=== PATIENT | female | born 1945 | race Caucasian/White ===

== ENCOUNTER → 2016-09-25 | Outpatient (CLI) | payer MEDICARE ==
[~2016-09-25] MED LIST: CALCIUM CITRATE; DAYPRO600 M1 PO; INDAPAMIDE2.5 MG PO; KLOR-CON20 MEQ PO; METOPROLOL SR50 MG PO; MOTRIN800 MG PO; PRAVASTATIN SOD80 MG PO; VICODIN 5/500 505 MG PO; VICODIN 500 MG-1 TAB PO
--- NOTE | ~2016-09-25 | WRIGHTHP ---
[place], [place] PATIENT HISTORY AND PHYSICAL EXAM NAME: TEJAL WHIPPLE [facility] #: [id number] UNIT #: [id number] ROOM: DOCTOR: DEEPTI AndresSIENA BIRTHDATE: [birth year] DOS: 09/25/2016 CHIEF COMPLAINT: Nonhealing wound or ulcer of the right calf. HISTORY OF PRESENT ILLNESS: This is a 71-year-old female who apparently banged her leg, the back of her right calf 3 weeks ago on a metal bed frame and suffered wounds to the back of her calf and these wounds have not healed. They do cause some discomfort and pain. She is using Betadine and triple antibiotic ointment on them. She has been to see her primary care physician who referred her to us for a nonhealing. She was started on Augmentin. She has been on Augmentin for approximately 3 days now. She said that some of the redness that was associated with the wounds seems to have gone down a bit. She has never had any problems with wound healing before. PAST MEDICAL HISTORY: Significant for the following. She does have a history of vascular disease, the patient reports right foot; however, medical records indicate left turned dark and black in color and very cold and she was admitted for a workup at [facility]. She said she did undergo vascular studies at that time, this was approximately 2 years ago and they did not find any blockages that needed to be fixed according to the patient. She denies ever having a heart attack or any other cardiac illnesses. She does have a history of hypertension, a pinched nerve, hyperlipidemia. She is not known to be diabetic, but she says her doctor has been asking her whether she checks her sugar or not. ALLERGIES: SULFA ANTIBIOTICS. MEDICATIONS: Include Pravachol 80 mg daily, metoprolol 50 b.i.d., indapamide 2.5 daily, potassium 20 mEq daily. FAMILY HISTORY: Significant for arthritis, rheumatoid arthritis. PAST SURGICAL HISTORY: She has had a hysterectomy and tonsillectomy done surgically. SOCIAL HISTORY: She is a past smoker. She has quit smoking approximately 2 years ago, but was a heavy smoker up until then. She does not drink alcohol. REVIEW OF SYSTEMS: She does have some chronic dyspnea on exertion. She denies any chest pains or nausea or vomiting. No documented fevers or chills. The wound does cause some discomfort. She otherwise, offers no other specific complaints. PHYSICAL EXAMINATION: VITAL SIGNS: As follows. Temperature 98.1, pulse is 80, respirations 18, blood pressure was unable to be checked as our blood pressure cuff that fit the patient with a large one was unfortunately not working properly. GENERAL: This is a well-developed, well-nourished female in no acute distress, somewhat obese, pleasant and cooperative. NECK: No JVD. [place], [place] PATIENT HISTORY AND PHYSICAL EXAM [id number] UN[facility] #: [id number] ROOM: DOCTOR: SIENA TATUM M.D. BIRTHDATE: [birth year] LUNGS: Clear to auscultation. CARDIOVASCULAR: S1, S2, regular rate and rhythm. ABDOMEN: Obese and soft. EXTREMITIES: She has nonpitting edema bilaterally, multiple varicosities present on both of her lower extremities. Her toes are quite cool to touch with capillary refill less than 3. ABIs not done secondary to unable to get the blood pressure on the upper extremity. Her pedal pulses are palpable, however, but once again they are quite cold. She has 2 wounds located on the right calf, one is located distally, it is measuring 0.5 x 0.25 x 0.2. The more proximal wound is 0.4 x 2 x 0.2 as well. There is some minimal fibrin slough present mostly in the distal wound. There is some localized erythema just right around the wound. The distal wound was debrided after consent with a curette, the tissue removed was just fibrin and slough only, there was no bleeding. This is a selective debridement only. The patient tolerated the debridement well. Post-debridement measurements are unchanged, but the depth would still be at 0.2. LABORATORY DATA: The last labs were done in February shows a white count of 9.5, hemoglobin of 12.5, hematocrit of 39.4, platelets are normal at 214. She had a hemoglobin A1c of 6.2 that was elevated, that was in February. ASSESSMENT AND PLAN: Chronic ulcer of the right lower extremity, likely secondary to venous insufficiency and chronic edema, possible peripheral vascular disease and history of diabetes as hemoglobin A1c was elevated. She is not on any oral hypoglycemic agents. She is apparently diet controlled. We did do a culture post-debridement of the distal wound to check for bioburden. She is already on antibiotics empirically. I will go ahead and use TheraHoney for now to help keep the wound clean. We will cover it with a nonadherent bandage and have her change it on a daily basis. She does have probable peripheral vascular disease, likely microvascular. We were not able to get an DANIAL as we had problems with her blood pressure cuff today, so we will go ahead and schedule for arterial Dopplers and hopefully try to get ABIs next week when she comes back in. She does have multiple varicosities and probable venous insufficiency as well, which is likely contributing to a poorly healing wound. Follow up in 1 week. [place], [place] PATIENT HISTORY AND PHYSICAL EXAM NAME: TEJAL WHIPPLE UNIT #: [id number] ROOM: DOCTOR: SIENA TATUM M.D. BIRTHDATE: [birth year] SIENA TATUM MD CM:HISPHYS:PATIENT HISTORY AND PHYSICAL EXAMINATION [id number] SIENA TATUM M.D. 09/29/16 1304 interface
== END ==
LOC: WOUNDCARE 03:58
DX: E11.622 Type 2 diabetes mellitus with other skin ulcer (principal); I87.2 Venous insufficiency (chronic) (peripheral); E11.51 Type 2 diabetes mellitus with diabetic peripheral angiopathy without gangrene; E66.9 Obesity, unspecified; I10 Essential (primary) hypertension; E78.5 Hyperlipidemia, unspecified; Z87.891 Personal history of nicotine dependence

== ENCOUNTER → 2016-10-01 | Outpatient (CLI) | payer MEDICARE ==
--- NOTE | ~2016-10-01 | PR ---
[place], [place] PROGRESS NOTE NAME: TEJAL WHIPPLE [facility] #: [id number] UNIT #: [id number] ROOM: DOCTOR: DEEPTI AndresSIENA BIRTHDATE: [birth year] DOS: 10/01/2016 WOUND CARE VISIT This is a routine wound care appointment. CHIEF COMPLAINT: Nonhealing ulcer of the distal right calf. HISTORY OF PRESENT ILLNESS: The location of the wound is the distal part of the right calf. It is a traumatic wound. She has had it for approximately 4 weeks now. It does cause pain and discomfort. She was seen here for the first time last week and started on TheraHoney, which she has been using and changing on a daily basis. She has completed her antibiotic course which was given to her by her primary care physician. She has no new specific complaints though there is some drainage, but no change in drainage thus far and no increased pain. No fevers or chills are noted. PHYSICAL EXAMINATION: VITAL SIGNS: She is afebrile, pulse is 64, respirations 18 and blood pressure is 146/74. EXTREMITIES: The distal wound is measuring 0.3 x 1.5 x 0.1. There is less erythema overall and less necrotic tissue. There is some fibrin slough, but it is minimal. The more proximal wound is measuring 0.4 x 1.5 x 0.2. The depth seems more deeper, but last week's measurement did show that was covered by an dried eschar, so that I think the depth looks deeper this week because of the removal of necrotic tissue. The localized erythema that was present last week appears slightly improved. It does not appear overtly cellulitic. There is no purulence. A selective debridement was done. The tissue removed was just fibrin and slough. This was done on both of these wounds. Instrument used was a curette. Cetacaine spray was used for topical anesthesia. Post-debridement measurements are unchanged except for the depth of 0.2 for both of these wounds. There was no bleeding. The patient tolerated the procedure well. ASSESSMENT AND PLAN: Chronic ulcers of the right lower extremity, likely secondary to venous insufficiency, chronic edema, possibly some peripheral vascular disease as well. Wound culture was done last week and was negative. She does seem to be responding to TheraHoney, so we will continue to use this and have her change daily dressing. She is getting Dopplers done tomorrow, arterial Dopplers, so hopefully we will get a better idea about her vascular status next week. She does have multiple varicosities and likely has venous insufficiency that is contributing to her overall slow healing. Follow up in 1 week. [place], [place] PROGRESS NOTE NAME: TEJAL WHIPPLE UNIT #: [id number] ROOM: DOCTOR: SEINA TATUM M.D. BIRTHDATE: [birth year] SIENA TATUM MD CM:MYAH [id number] SIENA TATUM M.D. 10/02/16 0240 interface
== END ==
LOC: WOUNDCARE 03:21
DX: L97.212 Non-pressure chronic ulcer of right calf with fat layer exposed (principal); E66.9 Obesity, unspecified; I48.91 Unspecified atrial fibrillation

== ENCOUNTER → 2016-10-02 | Outpatient (CLI) | payer MEDICARE | END | disposition home or self-care (01) | LOC: US 10:29 | DX: I73.89 Other specified peripheral vascular diseases (principal); I10 Essential (primary) hypertension; E11.9 Type 2 diabetes mellitus without complications ==

== ENCOUNTER → 2016-10-08 | Outpatient (CLI) | payer MEDICARE ==
--- NOTE | ~2016-10-08 | PR ---
[place], [place] PROGRESS NOTE NAME: TEJAL WHIPPLE [facility] #: [id number] UNIT #: [id number] ROOM: DOCTOR: DEEPTI AndresSIENA BIRTHDATE: [birth year] DOS: 10/08/2016 CHIEF COMPLAINT: Nonhealing ulcers of the distal right calf. HISTORY OF PRESENT ILLNESS: The location of the wounds are on the distal part of the right calf. They are traumatic in origin. They have been present for approximately 5 weeks now. They do cause pain and discomfort. She has been on TheraHoney for approximately 2 weeks now, which has made some improvement, but not a large amount. She has no specific complaints. She does still have occasional drainage, but she still does have some pain and discomfort. She just had her arterial Dopplers done last week, which were read as mild multilevel arterial disease based on waveform analysis. PHYSICAL EXAMINATION: VITAL SIGNS: Today, she is afebrile, pulse is 72, respirations 18, blood pressure is 130/70. WOUND EXAMINATION: The wound on the distal part of the right calf is measuring 0.3 x 1.5 x 0.1. There is some moderate amount of fibrin slough present. There is still some localized erythema. The more proximal wound is measuring 0.3 x 1 x 0.2 and still has a fair amount of fibrin slough present. There is localized erythema. Debridement was done. This is a selective debridement of both of the wounds. A culture was obtained of the more proximal wound post-debridement. The tissue removed was fibrin and slough. The instrument used was a curette. Post-debridement measurements are unchanged. There was no bleeding. The patient tolerated the procedure well. ASSESSMENT AND PLAN: Slowly healing chronic ulcers of the right lower extremity that started out as traumatic in nature, but are slow to heal secondary to venous insufficiency, chronic edema with some peripheral vascular disease as well. She is also what appears to be a diet controlled diabetic and has morbid obesity. We will discontinue the TheraHoney and use Bactroban ointment. A culture was obtained. We will go with a collagen dressing and I will really use Tubigrip for some compression for now. I would like her to change dressing every other day. Follow up early next week. That way if there is no improvement, we may want to do a compression wrap such as an Unna boot. She should be able tolerate this according to her vascular studies. Followup is in 1 week, early next week. [place], [place] PROGRESS NOTE NAME: TEJAL WHIPPLE UNIT #: [id number] ROOM: DOCTOR: SIENA TATUM M.D. BIRTHDATE: [birth year] SIENA TATUM MD CM:PNTRANS [id number] SIENA TATUM M.D. 10/08/16 2331 interface
== END ==
LOC: WOUNDCARE 00:53
DX: L97.212 Non-pressure chronic ulcer of right calf with fat layer exposed (principal); I87.2 Venous insufficiency (chronic) (peripheral); I73.9 Peripheral vascular disease, unspecified; E66.9 Obesity, unspecified; I48.91 Unspecified atrial fibrillation

== ENCOUNTER → 2016-10-15 | Outpatient (CLI) | payer MEDICARE ==
--- NOTE | ~2016-10-15 | PR ---
[place], [place] PROGRESS NOTE [id number] #: [id number] ROOM: DOCTOR: DEEPTI AndresSIENA BIRTHDATE: [birth year] DOS: 10/15/2016 The patient comes in for a followup visit. CHIEF COMPLAINT: Wounds of the right lower extremity. The location of the wounds are on the distal part of the right calf. They are traumatic in origin, they have been present for approximately 6 weeks now. They have had pain and discomfort, but now they have definitely that has improved quite a bit so she does not complain of pain at this time. They are drying up and they are not really draining at this time either. She was started on Bactroban ointment and doxycycline for large amounts of staph in her cultures since last visit. She has no other specific complaints. OBJECTIVE: VITAL SIGNS: Stable. Temperature is 98.1, pulse is 68, respirations 18, blood pressure is 118/64. One of the wounds is measuring much smaller 0.1 x 0.2 x 0.1. The other one is 0.1 x 0.1 x 0.1. They are definitely seeming to be healing quite nicely. No debridement was done at this time. The erythema that was present before on prior occasion is much improved as well and they are not tender. Debridement was not done. ASSESSMENT AND PLAN: Slowly healing chronic ulcers that are definitely moving in the right direction at this time. Comorbid conditions are venous insufficiency, chronic edema, some peripheral vascular disease as well as diet-controlled diabetes, morbid obesity. We will continue with the Bactroban ointment and she is going to complete her oral antibiotics. She is to follow up with us in 2 weeks. We will hold off on any compression wraps at this time. I did explain to her that she does have some mild peripheral arterial disease and she has followed up with Dr. Guerra in the past. She was told to follow up with him as well. This was 2 years ago so I did mention that she should at some point to follow up with him to see what he says as far as her vascular status goes. [place], [place] PROGRESS NOTE [facility]: [id number] UNIT #: [id number] ROOM: DOCTOR: SIENA TATUM M.D. BIRTHDATE: [birth year] SIENA TATUM MD CM:PNTRANS [phone] SIENA TATUM M.D. 10/16/16 0308 interface
== END ==
LOC: WOUNDCARE 02:42
DX: E11.622 Type 2 diabetes mellitus with other skin ulcer (principal); I87.2 Venous insufficiency (chronic) (peripheral); L97.212 Non-pressure chronic ulcer of right calf with fat layer exposed; E66.01 Morbid (severe) obesity due to excess calories; E11.51 Type 2 diabetes mellitus with diabetic peripheral angiopathy without gangrene

== ENCOUNTER → 2016-10-29 | Outpatient (CLI) | payer MEDICARE ==
--- NOTE | ~2016-10-29 | PR ---
[place], [place] PROGRESS NOTE NAME: TEJAL WHIPPLE [facility] #: [id number] UNIT #: [id number] ROOM: DOCTOR: SIENA TATUM M.D. BIRTHDATE: [birth year] DOS: 10/29/2016 CHIEF COMPLAINT: Wounds of the right lower extremity. HISTORY OF PRESENT ILLNESS: The wounds have been present for approximately 8 weeks now, they were traumatic in origin. The patient was seen approximately 2 weeks ago and at that time, the wounds had been healing quite nicely. She did have a culture that grew large amounts of Staph she was treated with Bactroban ointment and doxycycline. She states her wounds are healed, they were not bothering her, they were not red, they were not draining, and they were not causing any pain or discomfort. PHYSICAL EXAMINATION: VITAL SIGNS: Stable. The wounds have healed. Temperature is 98.1, pulse is 72, respirations 20, and blood pressure is 150/70. ASSESSMENT AND PLAN: Healed traumatic wounds. The patient will be discharged from the wound clinic and may follow up if need be in the future. SIENA TATUM MD CM:MYAH [phone] SIENA TATUM M.D. 10/29/16 1723 interface
== END ==
LOC: WOUNDCARE 01:29
DX: L97.212 Non-pressure chronic ulcer of right calf with fat layer exposed (principal); I87.2 Venous insufficiency (chronic) (peripheral); E66.9 Obesity, unspecified; I73.9 Peripheral vascular disease, unspecified

== ENCOUNTER 2017-01-09 14:57 | Emergency (ER) | payer MEDICARE ==
[~2017-01-09] VITALS: Ht 170.1 cm; Wt 117.9 kg
[2017-01-09] MEDS ORDERED: CALCIUM + VITA1 EAC2 PO (15:05)
[2017-01-09] MEDS ORDERED: K-TAB20 MEQ PO (15:08)
[2017-01-09] MEDS ORDERED: SYNTHROID25 MCG PO (15:08)
[2017-01-09] MEDS ORDERED: LOW DOSE ASPIRI81 MG PO (15:08)
[2017-01-09] MEDS ORDERED: NAPROSYN500 MG PO (15:14)
[2017-01-09] MEDS ORDERED: CYCLOBENZAPRINE5 M3 PO (15:14)
== END 2017-01-09 16:25 | disposition home or self-care (01) ==
LOC: ED 14:57
DX: M79.622 Pain in left upper arm (principal); M54.10 Radiculopathy, site unspecified; R03.0 Elevated blood-pressure reading, without diagnosis of hypertension; Z88.2 Allergy status to sulfonamides; Z79.82 Long term (current) use of aspirin; Z79.899 Other long term (current) drug therapy

== ENCOUNTER 2017-01-29 06:06 | Emergency (ER) | payer MEDICARE ==
[~2017-01-29] VITALS: Ht 170.1 cm; Wt 113.4 kg
[~2017-01-29 06:06] MED LIST changes: +CALCIUM + VITA1 EAC2 PO; +CYCLOBENZAPRINE5 M3 PO; +K-TAB20 MEQ PO; +LOW DOSE ASPIRI81 MG PO; +NAPROSYN500 MG PO; +SYNTHROID25 MCG PO
[2017-01-29 06:44] LABS: BASO # 0.1 10*3/uL (0.0-0.1); BASO % 0.7 % (0.0-1.0); EOS # 0.3 10*3/uL (0.0-0.4); EOS % 2.5 % (1.0-4.0); HEMATOCRIT 40.3 % (37.0-47.0); HEMOGLOBIN 12.6 g/dl (12.0-16.0); LYMPH # 3.6 10*3/uL (1.3-4.4); LYMPH % 30.3 % (27.0-41.0); MEAN CORPUSCULAR HGB 27.5 pg (27.0-31.0); MEAN CORPUSCULAR HGB CONC 31.3 g/dl (33.0-37.0); MONO # 0.6 10*3/uL (0.1-1.0); NEUT # 7.3 10*3/uL (2.3-7.9); NEUT % 61.2 % (47.0-73.0); PLATELET COUNT AUTOMATED 225 10*3/uL (130-400); RED BLOOD COUNT 4.58 10*6/uL (4.10-5.10); RED CELL DISTRI WIDTH 13.3 % (0-14.5); WHITE BLOOD COUNT 11.9 10*3/uL (4.8-10.8)
[2017-01-29 06:55] LABS: PROTHROMBIN TIME 10.6 SECONDS (9.0-12.4)
[2017-01-29 07:04] LABS: ALBUMIN 2.9 gm/dl (3.1-4.5); ALKALINE PHOSPHATASE 69 U/L (45-117); BILIRUBIN, TOTAL 0.5 mg/dl (0.2-1.0); BUN 12 mg/dl (7-24); CARBON DIOXIDE 24 mmol/L (21-32); CHLORIDE 105 mmol/L (98-107); EST GLOM FILT AFRICAN AMERICAN > 60 ml/min; GLUCOSE 155 mg/dL (65-99); MAGNESIUM 1.3 mg/dL (1.5-2.1); POTASSIUM 3.6 mmol/L (3.5-5.1); SGOT/AST 28 IU/L (3-35); SGPT/ALT 38 U/L (12-78); SODIUM 139 mmol/L (136-145); TOTAL PROTEIN 7.4 gm/dL (6.4-8.2)
[2017-01-29 07:11] LABS: TROPONIN I < 0.015 ng/ml (<0.045)
[2017-01-29] MEDS ORDERED: NAPROSYN500 MG PO (07:49)
== END 2017-01-29 07:52 | disposition home or self-care (01) ==
LOC: ED 06:06
PROVIDERS: Student in an Organized Health Care Education/Training Program
DX: M54.9 Dorsalgia, unspecified (principal); Z88.2 Allergy status to sulfonamides; Z79.82 Long term (current) use of aspirin

== ENCOUNTER 2018-07-19 16:08 | Inpatient (IN) | payer OTHER ==
[~2018-07-19] VITALS: Ht 170.1 cm; Wt 116.7 kg
--- NOTE | ~2018-07-19 | PR ---
[place], [place] PROGRESS NOTE NAME: TEJAL WHIPPLE [facility] #: [id number] UNIT #: [id number] ROOM: 502 DOCTOR: MARY ANN FORBES MD BIRTHDATE: [birth year] DOS: 07/21/2018 SUBJECTIVE: The patient is doing much better. She does not have any more complaints of chest pain or abdominal pain. OBJECTIVE: VITAL SIGNS: Pressure is 134/54, pulse of 63, respirations 22, temperature 98.1. LUNGS: Clear. HEART: Regular. ABDOMEN: Obese, soft, nontender. EXTREMITIES: Without any edema. Stress test was normal. ASSESSMENT AND PLAN: 1. The patient with precordial chest pain, ruled out for myocardial infarction and stress test was negative. 2. Epigastric pain could be from aspirin and Naprosyn, Protonix was added and the patient is asymptomatic this morning. Workup so far is negative. Plan is to discharge him to home today to follow up with Dr. Guillen as an outpatient. MARY ANN FORBES MD CM:PNTRANS [phone] MARY ANN FORBES MD 07/21/182140 interface
--- NOTE | ~2018-07-19 | CON ---
[place], [place] REPORT OF CONSULTATION NAME: TEJAL WHIPPLE [facility] #: [id number] UNIT #: [id number] ROOM: 502 DOCTOR: ARELI FOREMAN MD BIRTHDATE: [birth year] DOS: 07/20/2018 REFERRING PHYSICIAN: Татьяна Bowers MD REASON FOR CONSULTATION: Evaluation of chest discomfort. HISTORY OF PRESENT ILLNESS: The patient is a 73-year-old woman who does have a history of hypertension. She was seen yesterday by Dr. Guillen as an outpatient and complained of chest discomfort. She was scheduled for a stress test. She went home and her pain got worse and so she decided to come to the Emergency Room for assessment. In addition, she did have some epigastric discomfort, but denied any fevers or chills and denied nausea or vomiting. In the hospital, she was noted to have a marked elevation in blood pressure, which was as high as 223/68. Her medications were adjusted and her blood pressures have since improved. PAST MEDICAL HISTORY: Includes; 1. Essential hypertension. 2. Palpitations. 3. Swelling of the legs. 4. History of cataract resections. 5. History of gout. 6. History of abnormal cardiovascular stress test with questionable ischemia in the inferior wall. This has been managed medically and she has never had a heart catheterization. MEDICATIONS: Prior to admission, amlodipine 5 mg daily, aspirin 81 mg daily, calcium carbonate with vitamin D daily, cyclobenzaprine 5 mg t.i.d. with meals, levothyroxine 50 mcg daily, metoprolol 100 mg b.i.d., naproxen 500 mg b.i.d., potassium 20 mEq daily and pravastatin 80 mg at bedtime. ALLERGIES: SHE LISTS AN ALLERGY TO SULFA DRUGS. FAMILY HISTORY: Negative for early coronary artery disease. REVIEW OF SYSTEMS: The patient denies diplopia or loss of vision. She denies lightheadedness or syncope. She denies orthopnea or PND. She denies fevers, chills, sweats or recent weight change. She has had swelling in her ankles; however. She denies nausea or vomiting. She denies blood in her stools or urine. The remainder of the review of systems is negative except as noted above. SOCIAL HISTORY: The patient does not drink alcohol and does not smoke. PHYSICAL EXAMINATION: GENERAL: The patient is well-nourished white female, awake, alert and oriented. VITAL SIGNS: Pulse is 63 and regular, blood pressure is currently 118/72. She is afebrile. She weighs 116.7 kg and has a body mass index of 40.3. HEENT: Normocephalic and atraumatic. Extraocular muscles are intact. Sclerae are clear. Pupils equal, round and reactive to light. The oral mucosa is [place], [place] REPORT OF CONSULTATION NAME: TEJAL WHIPPLE UNIT #: [id number] ROOM: [facility] DOCTOR: ARELI FOREMAN MD BIRTHDATE: [birth year] moist. Tongue is midline. NECK: Supple. She has no jugular distention. Carotids are full with no bruits. She has no neck or supraclavicular masses. RESPIRATORY: Respirations are unlabored. Her chest is clear to auscultation and percussion. She has no presacral edema or chest wall tenderness. CARDIOVASCULAR: Her heart has a regular rhythm. She has no murmurs or rubs. She does have an S4 gallop, but no S3. The PMI is not displaced. There is no precordial heave, lift or thrill. ABDOMEN: Obese, but otherwise benign. EXTREMITIES: Showed trace edema bilaterally. LABORATORY DATA: Hemoglobin is 11.4, hematocrit 37.8, white count is 10,600, platelet count 242,000. Sodium 138, potassium 4.5, chloride 105, CO2 24, BUN 21, creatinine 0.69. Troponin levels have been negative. IMPRESSION: 1. Hypertensive urgency. 2. Precordial chest pain, which is most likely not cardiac in origin. 3. Abnormal laboratory studies including an elevated lipase. PLAN: The patient's blood pressure medications are being adjusted by Dr. Bowers. Abdominal ultrasound will be obtained in order to determine if gallbladder could be causing her elevated lipase and epigastric pain. We will proceed with a pharmacologic myocardial stress test. Further recommendations from a cardiac standpoint will depend on those results. We thank Dr. Bowers for asking our advice regarding her care. ARELI FOREMAN MD CM:CONSTR:REPORT OF CONSULTATION 1358 07/21/18 0723 interface
--- NOTE | ~2018-07-19 | EKG ---
[place], [place] ELECTROCARDIOGRAM REPORT NAME: TEJAL WHIPPLE UNIT #: [id number] ROOM: [facility] DOCTOR: ALY DRAFT REPORT BIRTHDATE: [birth year] [facility] Test Date: 2018-07-19 Test Time: 16:09:27 Pat Name: TEJAL WHIPPLE Department: Room: [facility] Gender: F Director Appointment: : 1945 Requested By: MINAL SELLERS Order Number: [id number] Reading MD: Melchor Hazel MD Measurements Intervals [place] Rate: 67 P: 23 [place]: 176 QRS: -16 QRSD: 74 T: 56 QT: 383 QTc: 405 Interpretive Statements Sinus rhythm Baseline wander in lead(s) V1 Electronically Signed On 07-20-2018 9:23:33 PST by Melchor Hazel MD CM:EKGRPT:ELECTROCARDIOGRAM REPORT [id number] MINAL MEDINA DRAFT REPORT MINAL SELLERS DO
--- NOTE | ~2018-07-19 | DS ---
[place], [place] DISCHARGE SUMMARY NAME: TEJAL WHIPPLE [facility] #: [id number] UNIT #: [id number] ROOM: 502 DOCTOR: MARY ANN FORBES MD BIRTHDATE: [birth year] DOS: 07/21/2018 DIAGNOSES: 1. Atypical chest pain, ruled out for myocardial infarction. 2. Acute gastritis, medication related. 3. Elevated and lipase workup so far negative for stress test. 4. Benign hypertension, poorly controlled. 5. Precordial chest pain with negative stress test. HOSPITAL COURSE: This patient is 73 years old. The patient comes in with complaints of chest pain. She had workup in the Emergency Room and had elevated lipase, was admitted. After examination, the patient seemed to have more of an epigastric pain. Amylase and lipase were repeated and this were normal. CT of the abdomen and pelvis and ultrasound of the gallbladder were all done, which were negative. Three sets of troponins were done, which came back normal. The patient had a medication adjustments made and her blood pressures are much better. Dr. Hazel was consulted as stress test was performed and this has also come back normal. The patient is advised not to take the Naprosyn, which could be causing some gastritis and her complaints of chest pain. The patient is stable today. The plan is to discharge her to home today. DISCHARGE MEDICATIONS: Amlodipine 10 daily, Protonix 40 b.i.d., Pravachol 80 daily, calcium 600 daily, potassium 20 daily, levothyroxine 50 mcg daily, aspirin 81 daily, cyclobenzaprine 5 t.i.d., metoprolol 100 b.i.d. Discontinued medication was naproxen. MARY ANN FORBES MD CM:DISCHARG [id number] MARY ANN FORBES MD 07/21/18 1019 interface
--- NOTE | ~2018-07-19 | WRIGHTHP ---
[place], [place] PATIENT HISTORY AND PHYSICAL EXAM NAME: TEJAL WHIPPLE [facility] #: [id number] UNIT #: [id number] ROOM: 502 DOCTOR: MARY ANN FORBES MD BIRTHDATE: [birth year] DOS: 07/19/2018 HISTORY OF PRESENT ILLNESS: This patient is 73 years old. The patient was seen in the office for Dr. Guillen and had complained of chest pain, was scheduled for a stress test. She states that she went home and her pain got worse and it was different this time and she got scared and decided to come into the Emergency Room. She denies having any chest pain this morning, but complains of some discomfort in the upper epigastric region. Denies having any fever or chills, any abdominal pain, nausea, and emesis. She does not have any regurgitation symptoms. PAST MEDICAL HISTORY: Significant for; 1. Benign hypertension. 2. Hypothyroidism. 3. Mixed hyperlipidemia. MEDICATIONS: Amlodipine 5 daily, aspirin 81 mg daily, cyclobenzaprine 5 mg t.i.d. p.r.n. for muscle spasms, levothyroxine 50 mcg daily, metoprolol 100 mg twice a day, naproxen 500 mg twice a day, potassium 20 daily, Pravachol 80 daily. SOCIAL HISTORY: Nonsmoker, does not use any alcohol. Lives at home. Her children are all grown. PHYSICAL EXAMINATION: GENERAL: She is awake, alert and oriented, in no acute distress. VITAL SIGNS: Graphic trend shows a pressure of 132/70 this morning, pulse of 78, respirations 14, afebrile. LUNGS: Diminished breath sounds, clear. HEART: Regular. ABDOMEN: Obese, soft, nontender. EXTREMITIES: Without any edema. ASSESSMENT AND PLAN: 1. The patient comes in with precordial chest pain, which appears to be atypical and most likely epigastric in nature. The patient has risk factors, so will be admitting her. Rule out myocardial infarction protocol was started. Cardiology consultation was obtained. A stress test and an echocardiogram will be ordered. 2. Epigastric pain with tenderness. The patient has been on Naprosyn and aspirin combination, may have gastritis. We will place her on Protonix 40. CT of the abdomen and pelvis done in the Emergency Room was negative. 3. Abnormal labs including an elevated lipase. Gallbladder screening was done to rule out gallstones and so far it shows diffuse hepatic steatosis. Amylase and lipase was repeated and this has come back normal. We had kept the patient n.p.o. with fluids, which will be discontinued; once the stress test is done. If the pressures are controlled, the patient should be able to go home. [place], [place] PATIENT HISTORY AND PHYSICAL EXAM [facility]: [facility] [id number] UN[facility] #: [id number] ROOM: [facility] DOCTOR: MARY ANN FORBES MD BIRTHDATE: [birth year] MARY ANN FORBES MD CM:HISPHYS:PATIENT HISTORY AND PHYSICAL EXAMINATION 0 MARY ANN FORBES MD 07/20/18921 interface
--- NOTE | ~2018-07-19 | EKG ---
[place], [place] ELECTROCARDIOGRAM REPORT NAME: TEJAL WHIPPLE UNIT #: [id number] ROOM: [facility] DOCTOR: ALY DRAFT REPORT BIRTHDATE: [birth year] [facility] Test Date: 2018-07-19 Test Time: 22:21:29 Pat Name: TEJAL WHIPPLE Department: Room: [facility] Gender: F Air Twist Operator: KATHY : 1945 Requested By: MINAL SELLERS Order Number: [id number] Reading MD: Melchor Hazel MD Measurements Intervals [place] Rate: 60 P: -9 [place]: 185 QRS: -12 QRSD: 74 T: 51 QT: 409 QTc: 409 Interpretive Statements Sinus rhythm Low voltage, precordial leads No change from earlier ECG this date Electronically Signed On 07-20-2018 9:37:20 PST by Melchor Hazel MD CM:EKGRPT:ELECTROCARDIOGRAM REPORT [id number] MINAL MEDINA DRAFT REPORT MINAL SELLERS DO
[2018-07-19 16:12] VITALS: BP 163/48
[2018-07-19 16:28] LABS: BASO # 0.1 10*3/uL (0.0-0.1); EOS # 0.2 10*3/uL (0.0-0.4); EOS % 2.3 % (1.0-4.0); HEMATOCRIT 37.8 % (37.0-47.0); HEMOGLOBIN 11.4 g/dl (12.0-16.0); LYMPH # 2.8 10*3/uL (1.3-4.4); LYMPH % 26.4 % (27.0-41.0); MEAN CELL VOLUME 88.1 fl (81.0-99.0); MEAN CORPUSCULAR HGB 26.6 pg (27.0-31.0); MEAN CORPUSCULAR HGB CONC 30.2 g/dl (33.0-37.0); MEAN PLATELET VOLUME 11.1 fl (9.6-12.3); MONO # 0.7 10*3/uL (0.1-1.0); MONO % 6.5 % (3.0-9.0); NEUT # 6.8 10*3/uL (2.3-7.9); NEUT % 63.5 % (47.0-73.0); PLATELET COUNT AUTOMATED 242 10*3/uL (130-400); RED BLOOD COUNT 4.29 10*6/uL (4.10-5.10); RED CELL DISTRI WIDTH 15.9 % (0-14.5); WHITE BLOOD COUNT 10.6 10*3/uL (4.8-10.8)
[2018-07-19 16:49] LABS: ALBUMIN 3.1 gm/dl (3.1-4.5); ALKALINE PHOSPHATASE 74 U/L (45-117); BUN 24 mg/dl (7-24); CHLORIDE 105 mmol/L (98-107); CREATININE 0.72 mg/dL (0.55-1.02); POTASSIUM 4.7 mmol/L (3.5-5.1); SGOT/AST 29 IU/L (3-35); SGPT/ALT 31 U/L (12-78); SODIUM 138 mmol/L (136-145); TOTAL PROTEIN 7.3 gm/dL (6.4-8.2)
[2018-07-19 16:50] LABS: ACT PARTIAL THROMBO TIME 20.7 SECONDS (20.8-31.5); LIPASE 438 U/L (73-393)
[2018-07-19 16:54] LABS: TROPONIN I < 0.015 ng/ml (<0.045)
--- NOTE | 2018-07-19 18:01 | NUR ---
PT'S NURSE NOW LEAVES DEPARTMENT FOR FAMILY EMERGENCY AND I WILL TAKEN OVER CARE FROM THIS POINT.
[2018-07-19 19:05] VITALS: BP 158/52
[2018-07-19 20:01] VITALS: BP 146/48
[2018-07-19 21:00] VITALS: BP 144/62
[2018-07-19 21:54] VITALS: BP 223/68
[2018-07-19 22:00] VITALS: BP 170/76
--- NOTE | 2018-07-19 22:00 | NUR ---
A 73, admitted to 5E, under the services of MARY ANN Montana MD with a diagnosis of ELEVATED LIPASE, CHEST PAIN. Chief complaint is CHEST PAIN. Patient arrived via wheel chair from ER. Monitor applied. Initial assessment completed. Vital signs taken and recorded. MARY ANN MONTANA MD notified of admission to the unit. Orders received. See assessment for past medical history, medications and allergies. Patient and/or family oriented to unit. [facility] visitation policy reviewed. Clothing/patient valuable form completed. ANGELINE GUTIÉRREZ
--- NOTE | 2018-07-19 23:00 | NUR ---
MED REC WILL NEED VERIFIED WITH [facility] IN AM. PATIENT DOES NOT KNOW NAMES/DOSES/FREQUENCIES OF MEDICATIONS AND FORGOT TO BRING IN HER LIST. THE ONLY MEDICATIONS SHE CAN FOR SURE TELL RN IS METOPROLOL AND AMLODIPINE. THESE ARE ALSO VERIFIED PER MED CLAIMS HX.
--- NOTE | 2018-07-19 23:20 | NUR ---
CALLED. NEW ADMISSION ORDERS RECEIVED.
[2018-07-19] MEDS ORDERED: AMLODIPINE BESYL5 MG PO (23:29)
[2018-07-19] MEDS ORDERED: METOPROLOL TAR100 M1 PO (23:29)
[2018-07-20] VITALS (8 sets, daily range): BP systolic 120–186; BP diastolic 50–94
--- NOTE | 2018-07-20 00:45 | NUR ---
'S ANSWERING SERVICE CALLED AT THIS TIME REGARDING CONSULT.
--- NOTE | 2018-07-20 01:25 | NUR ---
PO AMLODIPINE AND PO METOPROLOL ADMINISTERED PER ORDER FOR BP 170/76. WILL MONITOR EFFECTIVENESS. IVF ALSO INITIATED AT 60 ML/HR PER ORDER. WILL MONITOR. CALL LIGHT LEFT IN REACH.
--- NOTE | 2018-07-20 03:24 | NUR ---
NOTIFIED OF BP 186/60 MANUALLY. NEW ORDER RECEIVED FOR 0.1 MG CLONIDINE X1 DOSE.
--- NOTE | 2018-07-20 05:07 | NUR ---
PT MEDICATED WITH PO CLONIDINE PER ORDER. WILL MONITOR EFFECTIVENESS.
[2018-07-20 07:35] LABS: LIPASE 343 U/L (73-393)
[2018-07-20 07:41] LABS: ALBUMIN 3.2 gm/dl (3.1-4.5); ALKALINE PHOSPHATASE 74 U/L (45-117); BUN 21 mg/dl (7-24); CHLORIDE 105 mmol/L (98-107); CREATININE 0.69 mg/dL (0.55-1.02); POTASSIUM 4.5 mmol/L (3.5-5.1); SGOT/AST 31 IU/L (3-35); SGPT/ALT 29 U/L (12-78); SODIUM 138 mmol/L (136-145); TOTAL PROTEIN 7.3 gm/dL (6.4-8.2)
--- NOTE | 2018-07-20 09:00 | NUR ---
Supervisor Rides in to talk to patient. Patient states lives at home with her . There are 0 steps in the home. Physician: Dr. Len Guillen [facility] Home health services: none Patient's level of ADLs: MINIMAL ASSIST Patient has working utilities: yes DME: cane Follow-up physician's appointment after d/c: she prefers to make her own follow up appt after discharge Does patient want to access PORTAL?: no Discharge plan discussed with patient. She lives at home with her . She is independent in her ADLs and ambulates with a cane. Discussed home health care services and she denies any home needs at this time. When medically stable she will be discharged to home. LUNA MCNAMARA
--- NOTE | 2018-07-20 12:11 | NUR ---
PT OOOF FOR STRESS TEST
--- NOTE | 2018-07-20 13:40 | NUR ---
INFORMED CONSENT OBTAINED FOR LEXISCAN NUCLEAR STRESS TEST WITH DR. FOREMAN. RESTING EKG SINUS AURORA WITH A RESTING HR OF 50 WITH BP OF 118/72. LUNGS CLEAR WITH SPO2 OF 94% ON ROOM AIR. PT COMPLETED A 1:00 LEXISCAN PROTOCOL RECEIVING LEXISCAN 0.4 MG IV OVER 10 SECONDS. HAD NO CHEST PAIN OR ANY EKG CHANGES. DID C/O ABDOMINAL CRAMPING THAT WAS RELIEVED IN RECOVERY. HAD A PEAK HR OF 66 WITH BP OF 118/68. LAST RECOVERY HR OF 59 WITH BP OF 116/64. AWAITING SCANNING IN STABLE CONDITION.
--- NOTE | 2018-07-20 23:28 | NUR ---
24 HR chart check completed.
[2018-07-21] VITALS: BP 127/38; BP 134/54
--- NOTE | 2018-07-21 08:13 | NUR ---
Nursing screen received and chart review completed. Patient reports she is independent in ADLs and has no needs at this time per case management. No further OT indicated at this time. Thank you. Carolin Krishna OTR/L
[2018-07-21] MEDS ORDERED: AMLODIPINE BESY10 MG PO (09:03)
[2018-07-21] MEDS ORDERED: PANTOPRAZOLE SO40 MG PO (09:03)
--- NOTE | 2018-07-21 10:06 | NUR ---
Discharge instructions reviewed with patient/family. Patient receptive and verbalizes understanding. Follow-up care arranged. Written instructions given to patient/family. JONATHAN SMITH
[2018-09-19] MEDS ORDERED: OMEPRAZOLE MAGN20 MG PO (01:24)
[2018-09-19] MEDS ORDERED: ZYLOPRIM100 MG PO (01:25)
[2018-09-25] MEDS ORDERED: PREDNISONE5 MG PO (07:46)
[2018-09-25] MEDS ORDERED: DOXYCYCLINE100 M3 PO (07:46)
== END 2018-07-21 10:06 | disposition home or self-care (01) | DRG 392 ==
LOC: ED 16:08 → EDHOLD 19:55 → 5E 19:55
PROVIDERS: Emergency Medicine; ADMIT Internal Medicine
PROC: 4A02XM4 Measurement of Cardiac Total Activity, External Approach (ICD-10-PCS; principal; 2018-07-20)
PROC: 3E073KZ Introduction of Other Diagnostic Substance into Coronary Artery, Percutaneous Approach (ICD-10-PCS; principal; 2018-07-20)
DX: K29.00 Acute gastritis without bleeding (principal); Z88.2 Allergy status to sulfonamides; Z90.710 Acquired absence of both cervix and uterus; Z82.61 Family history of arthritis; I10 Essential (primary) hypertension; E03.9 Hypothyroidism, unspecified; E78.2 Mixed hyperlipidemia; H26.9 Unspecified cataract; M10.9 Gout, unspecified; I16.0 Hypertensive urgency

== ENCOUNTER 2019-04-18 13:19 | Inpatient (IN) | payer OTHER ==
[~2019-04-18] VITALS: Ht 170.1 cm; Wt 122.5 kg
[~2019-04-18 13:19] MED LIST changes: +AMLODIPINE BESY10 MG PO; +AMLODIPINE BESYL5 MG PO; +DOXYCYCLINE100 M3 PO; +KLOR-CON M2020 ME1 PO; +LISINOPRIL2.5 MG PO; +METHYLPREDNISOLO4 M2 PO; +METOPROLOL TAR100 M1 PO; +OMEPRAZOLE MAGN20 MG PO; +PANTOPRAZOLE SO40 MG PO; +PATANOL 0.1% 5 M5 ML OPH; +PREDNISONE5 MG PO; +ZYLOPRIM100 MG PO
[2019-04-18 13:21] VITALS: BP 104/70
[2019-04-18 13:53] LABS: BASO # 0.1 10*3/uL (0.0-0.1); BASO % 0.7 % (0.0-1.0); EOS # 0.2 10*3/uL (0.0-0.4); EOS % 1.4 % (1.0-4.0); HEMATOCRIT 36.4 % (37.0-47.0); HEMOGLOBIN 10.7 g/dl (12.0-16.0); LYMPH # 3.7 10*3/uL (1.3-4.4); LYMPH % 25.2 % (27.0-41.0); MEAN CELL VOLUME 86.5 fl (81.0-99.0); MEAN CORPUSCULAR HGB 25.4 pg (27.0-31.0); MEAN CORPUSCULAR HGB CONC 29.4 g/dl (33.0-37.0); MEAN PLATELET VOLUME 10.4 fl (9.6-12.3); MONO # 1.1 10*3/uL (0.1-1.0); MONO % 7.2 % (3.0-9.0); NEUT # 9.5 10*3/uL (2.3-7.9); PLATELET COUNT AUTOMATED 358 10*3/uL (130-400); RED BLOOD COUNT 4.21 10*6/uL (4.10-5.10); RED CELL DISTRI WIDTH 16.2 % (0-14.5); WHITE BLOOD COUNT 14.6 10*3/uL (4.8-10.8)
--- NOTE | 2019-04-18 13:53 | NUR ---
THE PT CAN NOT PROVIDE A URINE SAMPLE AT THIS TIME
[2019-04-18 14:06] LABS: INTERNATIONAL NORM RATIO 0.9 (2.0-3.5)
[2019-04-18 14:09] LABS: ALBUMIN 3.5 gm/dl (3.1-4.5); ALKALINE PHOSPHATASE 63 U/L (45-117); BUN 23 mg/dl (7-24); CHLORIDE 109 mmol/L (98-107); LIPASE 332 U/L (73-393); POTASSIUM 4.5 mmol/L (3.5-5.1); SGOT/AST 15 IU/L (3-35); SGPT/ALT 29 U/L (12-78); SODIUM 138 mmol/L (136-145); TOTAL PROTEIN 7.5 gm/dL (6.4-8.2)
[2019-04-18 14:10] LABS: TROPONIN I < 0.015 ng/ml (<0.045)
--- NOTE | 2019-04-18 14:10 | NUR ---
DR SELLERS NOTIFIED OF LATIC ACID OF 2.7
[2019-04-18 15:26] LABS: BILIRUBIN NEGATIVE (NEGATIVE); BLOOD NEGATIVE (NEGATIVE); CLARITY SL CLOUDY (CLEAR); COLOR YELLOW (YELLOW); GLUCOSE NEGATIVE (NEGATIVE); KETONE NEGATIVE (NEGATIVE); LEUKO ESTERASE NEGATIVE (NEGATIVE); NITRITE NEGATIVE (NEGATIVE); PH 5.5 (5.0-9.0); SPECIFIC GRAVITY 1.025 (1.005-1.030); UROBILINOGEN 0.2 E.U./dl (0.2-1.0)
[2019-04-18 16:01] LABS: BACTERIA 4+
--- NOTE | 2019-04-18 17:21 | NUR ---
THE PATIENT AND HER WERE CALLED IN A MEAL
[2019-04-18 19:16] VITALS: BP 99/50
--- NOTE | 2019-04-18 20:00 | NUR ---
THE PT IS C/O OF HURTING ALL OVER. YODIT MCKINLEY IS GOING TO CALL DR SANTANA AND GET AN ORDER FOR PAIN MEDICATION FOR THE PATIENT VERBAL UNDERSTANDING FROM THE PATIENT NOTED
--- NOTE | 2019-04-18 20:19 | NUR ---
THIS NURSE CALLED THE SUPERVISIOR AND TOLD HER THAT THE PATIENT WAS REQUESTING AN INPATIENT BED TO SLEEP IN [facility]. SHE SAID SHE WOULD SEE WHAT SHE COULD DO. VERBAL UNDERSTANDING NOTED FROM THE PATIENT
--- NOTE | 2019-04-18 21:43 | NUR ---
THE PT IS REFUSING THE HEART MONITOR AT THIS TIME. SHE DOES NOT FEEL THAT SHE NEEDS IT.
[2019-04-19] VITALS (7 sets, daily range): BP systolic 106–151; BP diastolic 43–74
[2019-04-19 07:00] LABS: BASO # 0.1 10*3/uL (0.0-0.1); BASO % 0.9 % (0.0-1.0); EOS # 0.2 10*3/uL (0.0-0.4); EOS % 1.8 % (1.0-4.0); HEMATOCRIT 30.8 % (37.0-47.0); HEMOGLOBIN 9.1 g/dl (12.0-16.0); LYMPH # 3.3 10*3/uL (1.3-4.4); LYMPH % 30.8 % (27.0-41.0); MEAN CELL VOLUME 86.3 fl (81.0-99.0); MEAN CORPUSCULAR HGB 25.5 pg (27.0-31.0); MEAN CORPUSCULAR HGB CONC 29.5 g/dl (33.0-37.0); MEAN PLATELET VOLUME 10.7 fl (9.6-12.3); MONO # 0.8 10*3/uL (0.1-1.0); MONO % 7.7 % (3.0-9.0); NEUT # 6.3 10*3/uL (2.3-7.9); NEUT % 58.2 % (47.0-73.0); PLATELET COUNT AUTOMATED 254 10*3/uL (130-400); RED BLOOD COUNT 3.57 10*6/uL (4.10-5.10); RED CELL DISTRI WIDTH 16.1 % (0-14.5); WHITE BLOOD COUNT 10.9 10*3/uL (4.8-10.8)
--- NOTE | 2019-04-19 08:30 | NUR ---
Space Scheduler in to talk to patient. Patient states lives at home with her . There are 0 steps in the home. Physician: Dr. Len Guillen Pharmacy[facility] health services: none Patient's level of ADLs: MINIMAL ASSIST Patient has working utilities: yes DME: cane Follow-up physician's appointment after d/c: she prefers to make her own follow up appt after discharge Does patient want to access PORTAL?: no Discharge plan discussed with patient. She lives at home with her . She is normally independent in her ADLs and ambulates with a cane. Discussed short term SNF and she is agreeable. When provided with a list of facilities she chose [facility]. woodworker notified. LUNA MCNAMARA
--- NOTE | 2019-04-19 09:00 | NUR ---
A 73, admitted to , under the services of Dr. ESTHER NEGRETE,PJ Sanchez with a diagnosis of UNSTEADY GAIT, GENERAL WEAKNESS, & DEHYDRATION. Chief complaint is PAIN IN LEGS, WEAKNESS. Patient arrived via bed from ER. Monitor applied. Initial assessment completed. Vital signs taken and recorded. DR. ESTHER NEGRETE,PJ Sanchez notified of admission to the unit. Orders received. See assessment for past medical history, medications and allergies. Patient and/or family oriented to unit. [facility]. Clothing/patient valuable form completed. RENEA NEWELL
--- NOTE | 2019-04-19 09:22 | NUR ---
Nursing screen received and chart reviewed. Patient admitted for unsteady gait, generalized weakness, and dehydration per nursing note. If patient has a decline in ADLs and functional mobility/transfers, please send OT orders. Thank you. Unique Neff OTR/L
--- NOTE | 2019-04-19 09:44 | NUR ---
COREMAKER FLOOR received notice that the patient would like to be referred to [facility]. COREMAKER FLOOR faxed the available information to [facility]. Will fax the remaining information when it is available.- BARBRA Meza
--- NOTE | 2019-04-19 11:04 | NUR ---
PHYSICAL THERAPY Attempted Physical therapy evaluation however Pt was eating. Will attempt later. Thank you Leia Barnes, PT, DPT
--- NOTE | 2019-04-19 11:26 | NUR ---
PATIENT MEDICATED WITH IV DILAUDID AT THIS TIME PER ORDER FOR COMPLAINTS OF HIP AND LEG PAIN 02/18 WITH NO RELIEF FROM TYLENOL. WILL MONITOR.
--- NOTE | 2019-04-19 11:33 | NUR ---
NEW ORDER REC'D FOR ROCEPHIN DAILY FROM FOR +URINE CULTURE OF GNB. SEE SEP.
--- NOTE | 2019-04-19 11:40 | NUR ---
NOTIFIED ' OFFICE OF NEW ORTHO CONSULT.
--- NOTE | 2019-04-19 13:11 | NUR ---
LAURIE PABLO REC'D FROM FOR NAUSEA FOLLOWING DILAUDID EARLIER. SEE MAR.
--- NOTE | 2019-04-19 13:15 | NUR ---
IV started right antecubital with #22 protective cath after 0 attempts. Site prepped with Chloroprep. Sterile dressing applied. Patient tolerated procedure well. IV NORMAL SALINE CLARISSA ENCISO
--- NOTE | 2019-04-19 13:24 | NUR ---
REPORTING LARGE EMESIS. CRYING. STATES "I JUST DON'T FEEL GOOD." IV ZOFRAN GIVEN PER ORDERS. CALL LIGHT IN REACH. FAMILY AT BEDSIDE. REPOSTIONED FOR COMFORT. WILL MONITOR.
--- NOTE | 2019-04-19 13:47 | NUR ---
Occupational Therapy evaluation completed on 5 with full eval to follow. Precautions include fall risk d/t generalized pain in BLE and progressive weakness, new rollator use at home, moderate complexity level 51730 via chart review, testing and evaluation. Recommend OT per pOC and SNF to enable return home and independence in ADLs and mobility. Thank you. Carolin Krishna OTR/L
--- NOTE | 2019-04-19 13:47 | NUR ---
PHYSICAL THERAPY Physical therapy evaluation completed, 5E. Full details and evaluation to follow. Moderate complexity determined after evaluation and chart review, [address]. PT to work on strength, gait, balance, safety, endurance, transfers. Recommending SNF at discharge. Thank you Leia Barnes, PT, DPT
--- NOTE | 2019-04-19 14:00 | NUR ---
OT WORKING WITH PT AT THIS TIME. STATES ZOFRAN HELPED A LITTLE BUT THE :UP AND DOWN" FROM WORKING WITH OT AGGREVATED THE NAUSEA SOME. ROUTINE MEDS GIVEN, TOLERATED WELL. CALL LIGHT IN REACH. DENIES ANY NEEDS AT THIS TIME. WILL CONTINUE TO MONITOR.
--- NOTE | 2019-04-19 16:49 | NUR ---
REQUESTING PAIN PILL. CALLED . NEW ORDER FOR ULTRAM 50MG TO BE GIVEN TID WITH SCHEDULED TYLENOL. SEE MAR.
--- NOTE | 2019-04-19 20:23 | NUR ---
ULTRAM WAS EFFECTIVE FOR EARLIER COMPLAINTS OF PAIN. WILL CONTINUE TO MONITOR. CALL LIGHT WITHIN REACH. PT LAYING DOWN IN BED.
--- NOTE | 2019-04-19 21:15 | NUR ---
REQUESTING SLEEPING PILL. NONE ON ORDER. INFORMED. MARIA GUADALUPE ORDER REC'D. SEE SEP.
[2019-04-20] VITALS: BP 135/63
--- NOTE | 2019-04-20 02:05 | NUR ---
24 HR chart check completed.
--- NOTE | 2019-04-20 06:15 | NUR ---
ZOFRAN GIVEN PER PRN ORDER FOR C/O NAUSEA. SEE EMAR. REINFORCED USE OF CALL LIGHT.
[2019-04-20 06:42] LABS: BASO # 0.1 10*3/uL (0.0-0.1); BASO % 1.2 % (0.0-1.0); EOS # 0.2 10*3/uL (0.0-0.4); HEMATOCRIT 32.4 % (37.0-47.0); HEMOGLOBIN 9.4 g/dl (12.0-16.0); LYMPH # 3.4 10*3/uL (1.3-4.4); LYMPH % 33.7 % (27.0-41.0); MEAN CELL VOLUME 86.6 fl (81.0-99.0); MEAN CORPUSCULAR HGB 25.1 pg (27.0-31.0); MEAN PLATELET VOLUME 10.5 fl (9.6-12.3); MONO # 0.7 10*3/uL (0.1-1.0); NEUT # 5.7 10*3/uL (2.3-7.9); NEUT % 55.7 % (47.0-73.0); PLATELET COUNT AUTOMATED 299 10*3/uL (130-400); RED BLOOD COUNT 3.74 10*6/uL (4.10-5.10); RED CELL DISTRI WIDTH 15.9 % (0-14.5); WHITE BLOOD COUNT 10.2 10*3/uL (4.8-10.8)
--- NOTE | 2019-04-20 07:26 | NUR ---
CONTENT DEVELOPMENT MANAGER faxed updates to [facility]. -BARBRA Meza
[2019-04-20 08:00] VITALS: BP 143/56
--- NOTE | 2019-04-20 08:25 | NUR ---
PHYSICAL THERAPY Patient was resting supine in bed this am when approached for therapy visit and reports feeling [place] with c/o of dizziness. Patient stated she had just returned from the bathroom and now feels terrible. Patient requested to be seen later today as able. Will continue per POC as tolerated. Noel Gonzales, INSULATION PROFESSIONAL
--- NOTE | 2019-04-20 08:30 | NUR ---
Nuclear Weapons Mechanical Specialist in to see patient. No new needs or request at this time. When medically stable, accepted, and precert is received she will be discharged to [facility]. dish room worker following.
--- NOTE | 2019-04-20 10:56 | NUR ---
OT NOTE Pt was seen this A.M. 1:1 for 15 minute OT session. Upon arrival pt was sitting upright on the EOB. Pt identified by name and and had complaints of feeling nauseated, 5/10 low back and BLE pain, and being dizzy. Sit to stand completed from bed level with CGA and use of straight cane for UE support. Functional mobility completed into the bathroom with CGA and use of straight cane, pt had multiple bouts of unsteady gait that required Marly to correct. Educated pt on importance of slowing down due to being impulsive and increasing risk of falls. Pt transferred on/off standard commode with CGA for safety and use of grab bar for UE support. Clothing management completed with CGA due to being unsteady without UE support. Pt then stood sink side while washing her hands with CGA. Functional mobility completed back to the EOB where she transferred sit to supine with SBA. There she was left with call light in hand, tray table in place, and at bedside. Continue with rec D/C plan to SNF. MONICA Flannery/Ashley
--- NOTE | 2019-04-20 11:20 | NUR ---
PHYSICAL THERAPY Patient was seen this am 1;1 for therapy visit and was standing next to her bed with her present upon therapist arrival. Patient identified by name / and reports still feeling Nausea, with c/o of 5/10 low back pain. Patient stated her Doctor was in and ordered new Medicine for Nausea and was able to ambulate 20'x 2 to bathroom, Min A, use of st cane, demonstrating slow, unsteady gait patten. Patient fatigues quickly, needing brief standing rest break < 20 seconds to safely complete all gait ex. Patient returned to supine in bed and remained with call light, tray table and telephone. Will continue per POC as tolerated, total treatment time 14 minutes. Noel Gonzales, MAIL AGENT
[2019-04-20 12:00] VITALS: BP 142/62
[2019-04-20 16:00] VITALS: BP 150/48
[2019-04-20 20:00] VITALS: BP 140/59
--- NOTE | 2019-04-20 21:22 | NUR ---
AMBIEN 5 MG PO GIVEN PER PRN ORDER FOR C/O INABILITY TO SLEEP. REINFORCED USE OF CALL LIGHT. SEE EMAR.
[2019-04-21] VITALS: BP 109/50
[2019-04-21 06:47] LABS: BASO # 0.1 10*3/uL (0.0-0.1); BASO % 1.2 % (0.0-1.0); EOS # 0.2 10*3/uL (0.0-0.4); HEMATOCRIT 31.3 % (37.0-47.0); LYMPH # 2.2 10*3/uL (1.3-4.4); LYMPH % 29.9 % (27.0-41.0); MEAN CELL VOLUME 87.7 fl (81.0-99.0); MEAN CORPUSCULAR HGB 25.2 pg (27.0-31.0); MEAN CORPUSCULAR HGB CONC 28.8 g/dl (33.0-37.0); MEAN PLATELET VOLUME 10.5 fl (9.6-12.3); MONO # 0.6 10*3/uL (0.1-1.0); MONO % 7.7 % (3.0-9.0); NEUT # 4.4 10*3/uL (2.3-7.9); NEUT % 58.7 % (47.0-73.0); PLATELET COUNT AUTOMATED 266 10*3/uL (130-400); RED BLOOD COUNT 3.57 10*6/uL (4.10-5.10); RED CELL DISTRI WIDTH 15.9 % (0-14.5); WHITE BLOOD COUNT 7.4 10*3/uL (4.8-10.8)
--- NOTE | 2019-04-21 07:13 | NUR ---
BARBRA sent updates to [facility]. Patient requires a PRECERT. -BARBRA Meza
[2019-04-21 08:00] VITALS: BP 130/44
--- NOTE | 2019-04-21 09:00 | NUR ---
Yarding And Folding Machine Operator in to see patient. No new needs or request at this time. When medically stable and precert is received she will be discharged to [facility]. track repair worker following.
--- NOTE | 2019-04-21 09:05 | NUR ---
Patients PRECERT was started yesterday. COOK FISH EGGS completed HENs. -BARBRA Meza
--- NOTE | 2019-04-21 09:55 | NUR ---
PHYSICAL THERAPY Patient seen this am 1;1 for therapy visit and was sitting up on EOB upon therapist arrival. Patient identified by name / and reports c/o of LE pain / weakness. Patient also stated she had just returned from walking to the bathroom and needed a brief seated rest to complete all therapy this session. Patient instructed on and performed seated B LE therex, all planes, 2 x 10 reps each to increase LE strength. Patient completed all ex without c/o, then transfers sit to supine SBA and remained with call light, tray table, telephone and bed alarm for safety. Will continue per POC as tolerated, total treatment time 14 minutes. Noel Gonzales, DIRECTOR QUALITY ASSURANCE
--- NOTE | 2019-04-21 10:05 | NUR ---
OT NOTE Pt was seen this A.M. 1:1 for 25 minute OT session. Upon arrival pt was supine in bed. Pt identified by name and and had complaints of "I dont feel good at all" which she repeated throughout session however would not give a specific. Pt transferred supine to sit EOB with Marly. Sit to stand completed from bed level with CGA and use of straight cane for UE support. Functional mobility completed into the bathroom with CGA and use of straight cane, pt had bouts of unsteady gait that required Marly to correct. Pt transferred on/off standard commode with SBA and use of grab bar for UE support. Clothing management completed with CGA and toilet hygiene completed with supervision while seated. Pt then stood sink side while washing her hands with SBA. Pt had one LOB in the bathroom during a tight turn that required Marly to correct. Pt then returned to the EOB for a seated rest break. While sitting pt completed BUE towel exercises over all planes of motion for 1 X 10 to increase and restore maximum functional use during daily and self care tasks. Pt then transferred back into bed sit to supine with SBA. THere she was left with call light in hand, tray table in place, and phone in reach. COntinue with rec D/C plan to SNF. TRAVIS Flannery
[2019-04-21 12:00] VITALS: BP 133/50
--- NOTE | 2019-04-21 13:39 | NUR ---
PRECERT has been obtained. Patient can go to [facility] if medically stable. BARBRA notifed Cindy-Compound Worker. -BARBRA Meza
--- NOTE | 2019-04-21 13:56 | NUR ---
Notified Dr. Guillen patient's precert is back and patient is able to go to [facility] when medically stable.
--- NOTE | 2019-04-21 14:26 | NUR ---
SR. GOLDEN VIEWED XRAY. STATED PATIENTS HIPS ARE NOT AN ISSUE AT THIS STAGE ACCORDING TO XRAY, BUT THE SPINE DOES SHOW SOME SPURS AND ALIGNMENT ISSUES. IF HE IS NEEDED HE WILL BE AVAILABLE UNTIL TOMORROW MORNING. VERBALLY STATED SHE CAN BE TREATED AT HOME WITH PT AND ANTIINFLAMATORIES.
[2019-04-21 16:00] VITALS: BP 130/57
--- NOTE | 2019-04-21 16:31 | NUR ---
PHYSICAL THERAPY CO-SIGN I approve of the Physical Therapy notes written above. LUNA BARBOZA PT,DPT
[2019-04-21 20:00] VITALS: BP 153/61
[2019-04-22] VITALS: BP 128/45
[2019-04-22 08:00] VITALS: BP 143/73
[2019-04-22] MEDS ORDERED: CEFUROXIME AXE250 MG PO (08:15)
[2019-04-22] MEDS ORDERED: TRAMADOL HCL50 MG PO (08:27)
--- NOTE | 2019-04-22 12:25 | NUR ---
REPORT GIVEN TO [facility].
--- NOTE | 2019-04-22 12:45 | NUR ---
Discharge instructions reviewed with patient/family. Patient receptive and verbalizes understanding. Follow-up care arranged. Written instructions given to patient/family. MANUEL MUNOZ
--- NOTE | 2019-04-24 08:11 | NUR ---
OCCUPATIONAL THERAPY CO-SIGN I approve of the Occupational Therapy notes written above. NETTIE CORONA OTR/Ashley
== END 2019-04-22 12:45 | disposition other institution (70) | DRG 554 ==
LOC: ED 13:19 → EDHOLD 17:57 → 5E 17:57
PROVIDERS: Emergency Medicine; ADMIT Internal Medicine
DX: M16.0 Bilateral primary osteoarthritis of hip (principal); N39.0 Urinary tract infection, site not specified; Z68.41 Body mass index [BMI] 40.0-44.9, adult; R62.7 Adult failure to thrive; E66.01 Morbid (severe) obesity due to excess calories; B96.1 Klebsiella pneumoniae [K. pneumoniae] as the cause of diseases classified elsewhere; G89.29 Other chronic pain; M54.5 Low back pain; I10 Essential (primary) hypertension; E78.2 Mixed hyperlipidemia; K21.9 Gastro-esophageal reflux disease without esophagitis; E03.9 Hypothyroidism, unspecified; M10.9 Gout, unspecified; Z88.2 Allergy status to sulfonamides; Z91.81 History of falling

== ENCOUNTER 2019-06-07 14:36 | Inpatient (IN) | payer OTHER ==
[~2019-06-07] VITALS: Ht 172.7 cm; Wt 113.6 kg
--- NOTE | ~2019-06-07 | PR ---
[place], [place] PROGRESS NOTE NAME: TEJAL WHIPPLE [facility] #: [id number] UNIT #: [id number] ROOM: 510 DOCTOR: MARY ANN FORBES MD BIRTHDATE: [birth year] DOS: 06/10/2019 SUBJECTIVE: The patient is resting, is not having any new complaints other than her cough. OBJECTIVE: VITAL SIGNS: Blood pressure is 158/73, pulse of 107, respirations 18, temperature 98.7. LUNGS: Diminished breath sounds. Clear. HEART: Regular. ABDOMEN: Obese, soft. EXTREMITIES: Without any edema. ASSESSMENT AND PLAN: 1. Urinary tract infection with Klebsiella pneumoniae, on IV antibiotics. We will switch to p.o. 2. Lactic acidosis with sepsis, ruled out with negative blood cultures. 3. Hypertensive crisis. Pressures are much improved. No evidence of renal artery stenosis. 4. Cough with a negative chest x-ray and normal white cell count. The patient is stable and can be discharged to home to be followed up as an outpatient by her PCP. 5. She does have chronic anemia. We will do an iron and ferritin and B12 today before discharge and may require a GI consultation as an outpatient for endoscopy and colonoscopy. MARY ANN FORBES MD CM:PNTRANS [id number] MARY ANN FORBES MD 06/10/19 0751 interface
--- NOTE | ~2019-06-07 | DS ---
[place], [place] DISCHARGE SUMMARY [id number] #: [id number] ROOM: 510 DOCTOR: MARY ANN FORBES MD BIRTHDATE: [birth year] DOS: 06/10/2019 DIAGNOSES: 1. Urinary tract infection with Klebsiella pneumoniae. 2. Hypertensive crisis. 3. Benign hypertension with last echocardiogram in December 2018, which shows normal left ventricular wall thickness and function. 4. Primary insomnia. 5. Primary osteoarthritis. 6. Mixed hyperlipidemia. 7. Anemia. Workup still in the process. HOSPITAL COURSE: The patient is 73 years old, comes in with complaints of weakness, tiredness. She was evaluated in the ER with possibility of UTI and urosepsis. She was admitted. The patient was placed on IV fluids, IV antibiotics. Urine culture and blood cultures were sent. Lactic acidosis was noted. Sepsis was ruled out with negative cultures. Urine culture grew Klebsiella pneumoniae for which she was on IV Rocephin. She had hypertensive crisis, multiple new hypertensive medications were started, with that the blood pressures have come down and improved. Her white cell count is normal, hemoglobin has dropped to 7.9 this morning, so we have ordered an iron, ferritin, B12 and Hemoccults. Depending on the results, my plan is possibly discharge her to home. White cell count has normalized and the lactic acid has also normalized and his chest x-ray does not show any pathology. The patient will follow up with Dr. Guillen as an outpatient. DISCHARGE MEDICATIONS: Metoprolol 25 daily, amlodipine 5 daily, lisinopril 20 daily, Cipro 500 b.i.d., Pravachol 80 daily, calcium 600 one tablet daily, levothyroxine 50 mcg daily, aspirin 81 daily, omeprazole 20 daily, allopurinol 200 daily, potassium 20 daily, Patanol eyedrops, tramadol 50 t.i.d. and vitamin D 2000 units daily. [place], [place] DISCHARGE SUMMARY NAME: TEJAL WHIPPLE UNIT #: [id number] ROOM: 510 DOCTOR: MARY ANN FORBES MD BIRTHDATE: [birth year] MARY ANN FORBES MD CM:RAYMOND [id number] MARY ANN FORBES MD 06/10/19 0749 interface
--- NOTE | ~2019-06-07 | EKG ---
[place], [place] ELECTROCARDIOGRAM REPORT NAME: TEJAL WHIPPLE UNIT #: [id number] ROOM: 510 DOCTOR: ALY DRAFT REPORT BIRTHDATE: [birth year] [facility] Test Date: 2019-06-07 Test Time: 14:56:59 Pat Name: TEJAL WHIPPLE Department: Room: 510 Gender: F Clay Press Operator: OSCAR : 1945 Requested By: MINAL SELLERS Order Number: [id number] Reading MD: Basil Guerra MD Measurements Intervals Faber Rate: 109 P: 16 WV: 162 QRS: -18 QRSD: 64 T: 59 QT: 295 QTc: 398 Interpretive Statements Sinus tachycardia Low voltage, precordial leads LVH by voltage Compared to ECG 04/18/2019 13:47:26 Left ventricular hypertrophy now present Sinus rhythm no longer present Electronically Signed On 06-08-2019 9:17:22 PST by Basil Guerra MD CM:EKGRPT:ELECTROCARDIOGRAM REPORT [id number] MINAL MEDINA DRAFT REPORT MINAL SELLERS DO
--- NOTE | ~2019-06-07 | PR ---
[place], [place] PROGRESS NOTE NAME: TEJAL WHIPPLE LOCATED WITHIN [facility] #: [id number] UNIT #: [id number] ROOM: 510 DOCTOR: MARY ANN FORBES MD BIRTHDATE: [birth year] DOS: SUBJECTIVE: The patient states that she had the sick feeling that she has gone and is no longer present, but she does have a cough now. OBJECTIVE: VITAL SIGNS: Graphic trend shows a pressure of 163/86, pulse of 114, respirations 18, temperature 98.2. LUNGS: Diminished breath sounds. HEART: Regular. ABDOMEN: Obese, soft. EXTREMITIES: Without any edema. EKG shows sinus tachycardia. LABORATORY DATA: Urine culture, heavy Gram-negative 75,000 colonies, no identification yet. ASSESSMENT AND PLAN: 1. Urinary tract infection with sepsis pattern. The patient is on IV antibiotics. Blood cultures and urine cultures are not completed yet. 2. Benign hypertension with hypertensive crisis. The patient's medicines have been readjusted. Echocardiogram was done in 12/2018, so this is not being repeated at this time. 3. Primary insomnia. Added hydroxyzine. 4. Primary osteoarthritis. 5. Mixed hyperlipidemia, on medications. MARY ANN FORBES MD CM:PNTRANS [id number] MARY ANN FORBES MD 06/09/19 0806 interface
[~2019-06-07 14:36] MED LIST changes: +CEFUROXIME AXE250 MG PO; +TRAMADOL HCL50 MG PO
[2019-06-07 14:39] VITALS: BP 151/83
--- NOTE | 2019-06-07 15:17 | NUR ---
PATIENT DENIES ANY WOUNDS A&OX4.
--- NOTE | 2019-06-07 15:17 | NUR ---
PATIENT AMBULATED TO RESTROOM FOR URINE SPECIMEN WELL.
[2019-06-07 15:33] LABS: BASO # 0.1 10*3/uL (0.0-0.1); EOS # 0.2 10*3/uL (0.0-0.4); EOS % 1.9 % (1.0-4.0); HEMATOCRIT 31.4 % (37.0-47.0); HEMOGLOBIN 8.9 g/dl (12.0-16.0); LYMPH # 3.7 10*3/uL (1.3-4.4); LYMPH % 29.8 % (27.0-41.0); MEAN CELL VOLUME 84.6 fl (81.0-99.0); MEAN CORPUSCULAR HGB CONC 28.3 g/dl (33.0-37.0); MEAN PLATELET VOLUME 11.3 fl (9.6-12.3); MONO # 0.9 10*3/uL (0.1-1.0); MONO % 7.2 % (3.0-9.0); NEUT # 7.4 10*3/uL (2.3-7.9); NEUT % 59.7 % (47.0-73.0); NUCLEATED RED BLOOD CELL 0.2 % (0.0-0.0); PLATELET COUNT AUTOMATED 290 10*3/uL (130-400); RED BLOOD COUNT 3.71 10*6/uL (4.10-5.10); RED CELL DISTRI WIDTH 16.3 % (0-14.5); WHITE BLOOD COUNT 12.4 10*3/uL (4.8-10.8)
[2019-06-07 15:45] LABS: ACT PARTIAL THROMBO TIME 21.9 SECONDS (20.0-32.1)
[2019-06-07 15:48] LABS: ALKALINE PHOSPHATASE 53 U/L (45-117); BUN 14 mg/dl (7-24); CHLORIDE 108 mmol/L (98-107); CREATININE 0.84 mg/dL (0.55-1.02); LIPASE 240 U/L (73-393); POTASSIUM 4.3 mmol/L (3.5-5.1); SGOT/AST 18 IU/L (3-35); SGPT/ALT 24 U/L (12-78); SODIUM 143 mmol/L (136-145); TOTAL PROTEIN 6.9 gm/dL (6.4-8.2)
--- NOTE | 2019-06-07 15:50 | NUR ---
PATIENT ATTEMPTED TO GIVE URINE SPECIMEN AND HAS HAD NO SUCCESS YET.
[2019-06-07 15:52] LABS: TROPONIN I < 0.015 ng/ml (<0.045)
[2019-06-07 16:22] LABS: BILIRUBIN NEGATIVE (NEGATIVE); BLOOD NEGATIVE (NEGATIVE); CLARITY SL CLOUDY (CLEAR); COLOR YELLOW (YELLOW); GLUCOSE NEGATIVE (NEGATIVE); KETONE NEGATIVE (NEGATIVE); LEUKO ESTERASE NEGATIVE (NEGATIVE); NITRITE POSITIVE (NEGATIVE); PH 5.5 (5.0-9.0); SPECIFIC GRAVITY 1.025 (1.005-1.030); UROBILINOGEN 0.2 E.U./dl (0.2-1.0)
[2019-06-07 16:28] LABS: BACTERIA 3+
[2019-06-07 16:57] VITALS: BP 166/93
[2019-06-07 17:24] VITALS: BP 166/93
[2019-06-07 18:15] VITALS: BP 143/86
--- NOTE | 2019-06-07 18:25 | NUR ---
BEDSIDE REPORT GIVEN TO JOMAR MCKINLEY AT THIS TIME.
--- NOTE | 2019-06-07 18:32 | NUR ---
[place] 73, admitted to , under the services of MARY ANN Montana MD with a diagnosis of UTI, GENERAL WEAKNESS, SEPSIS. Chief complaint is DIZZINESS. WEAKNESS. Patient arrived via ambulatory from ER. Monitor applied. Initial assessment completed. Vital signs taken and recorded. MARY ANN MONTANA MD notified of admission to the unit. Orders received. See assessment for past medical history, medications and allergies. Patient and/or family oriented to unit. [address] visitation policy reviewed. Clothing/patient valuable form completed. JOMAR BAL.
[2019-06-07] MEDS ORDERED: VITAMIN D32000 UNIT PO (18:37)
--- NOTE | 2019-06-07 18:40 | NUR ---
Pt did not have med list with her, states she gets them filled at [facility]. Spoke with [facility] pharmacy states they would not fax list but I reviewed meds with pharmacist. Some meds pharmacist unsure if pt still was taking and I reviewed these with pt. Pt states that took her off all bp medications. These were removed.
[2019-06-07 18:55] VITALS: BP 162/78
[2019-06-07 20:00] VITALS: BP 162/82
--- NOTE | 2019-06-07 23:35 | NUR ---
IN TO ASSESS PT AT THIS TIME. PT RESTING COMFORTABLY. PT C/O PAIN AT IV SITE. SITE DRY AND INTACT, NO REDNESS/SWELLING OR SIGNS OF PHLEBITIS OR INFILTRATION. WILL CONTINUE TO MONITOR. NS RUNNING AT 60 ML/HR.
[2019-06-08] VITALS: BP 168/71
--- NOTE | 2019-06-08 00:47 | NUR ---
24 HOUR CHART CHECK COMPLETE.
[2019-06-08 08:00] VITALS: BP 180/78
[2019-06-08 12:00] VITALS: BP 180/81
--- NOTE | 2019-06-08 12:44 | NUR ---
NOTIFIED REGARDING ELEVATED BP. NEW ORDERS RECEIVED.
--- NOTE | 2019-06-08 14:13 | NUR ---
PT COMPLAIN OF HEADACHE, TYLENOL GIVEN
[2019-06-08 16:00] VITALS: BP 142/57
--- NOTE | 2019-06-08 19:49 | NUR ---
SPOKE WITH DR FORBES REGARDING PT REQUEST FOR SOMETHING TO HELP HER SLEEP TONIGHT. T.O. TAKEN FOR 25 MG HYDROXYZINE QHS.
[2019-06-08 20:00] VITALS: BP 132/86
--- NOTE | 2019-06-08 21:41 | NUR ---
24 HOUR CHART CHECK COMPLETE.
--- NOTE | 2019-06-08 23:20 | NUR ---
PATIENT SEATED FULL FOWLERS IN BED AT THIS TIME PLAYING A GAME ON HER PHONE. ASSESSMENT COMPLETED WITHOUT INCIDENT, DENIES ANY CHEST PAIN,SHORTNESS OF BREATH OR NEEDS AT THIS TIME. IV INFUSING WITHOUT INCIDENT. CALL LIGHT WITHIN REACH,WILL CONTINUE TO MONITOR.
[2019-06-09] VITALS: BP 163/86
--- NOTE | 2019-06-09 00:10 | NUR ---
PATIENT SEATED ON SIDE OF BED TEXTING ON HER PHONE. DENIES ANY PAIN OR NEEDS AT THIS TIME. IV INFUSING WITHOUT INCIDENT. CALL LIGHT WITHIN REACH. WILL CONTINUE TO MONITOR.
--- NOTE | 2019-06-09 04:10 | NUR ---
PATIENT RESTING IN BED IN A POSITION OF COMFORT WITH EYES CLOSED, RESPIRATIONS EASY AND NON-LABORED, NO SIGNS OR SYMPTOMS OF DISTRESS NOTED AT THIS TIME. CALL LIGHT WITHIN REACH. PATIENT NOT AWAKENED PER [facility] POLICY. WILL CONTINUE TO MONITOR.
[2019-06-09 08:00] VITALS: BP 143/55
[2019-06-09 08:05] VITALS: BP 140/58
--- NOTE | 2019-06-09 09:10 | NUR ---
PHYSICAL THERAPY Pt seen at the bedside sitting up at edge of bed, awaiting breakfast. Eval initiated, subjective information taken. Pt wanting to wait until after breakfast for activity. Will follow later in the AM. Gabriela Balderas PT
--- NOTE | 2019-06-09 09:10 | NUR ---
OCCUPATIONAL THERAPY Pt seen at the bedside sitting up at edge of bed, awaiting breakfast with present. Evaluation initiated with subjective information obtained. Pt requested to wait until after breakfast for activity. will follow up at a later time Amira SAMPSON/Ashley
[2019-06-09 12:00] VITALS: BP 130/47
--- NOTE | 2019-06-09 13:00 | NUR ---
Occupational therapy evaluation attempted. Patient reported not feeling well enough for evaluation at this time and requested OT to come back at a later date/time. Will follow-up. Thank you for this referral, Amira Stapleton OTR/L
--- NOTE | 2019-06-09 13:05 | NUR ---
PHYSICAL THERAPY Attempted to see pt to complete assessment, however pt back in bed states she is "not feeling well as they gave me differnte blood pressure medication" per pt nsg aware and she did not feel well enough for any activity at this time, will follow. Gabriela Balderas PT
[2019-06-09 16:00] VITALS: BP 132/52
[2019-06-09 20:00] VITALS: BP 148/68
[2019-06-10] VITALS: BP 158/73
[2019-06-10 06:42] LABS: BASO # 0.1 10*3/uL (0.0-0.1); BASO % 0.9 % (0.0-1.0); EOS # 0.2 10*3/uL (0.0-0.4); EOS % 2.3 % (1.0-4.0); HEMATOCRIT 28.6 % (37.0-47.0); HEMOGLOBIN 7.9 g/dl (12.0-16.0); LYMPH # 3.3 10*3/uL (1.3-4.4); LYMPH % 33.5 % (27.0-41.0); MEAN CELL VOLUME 84.1 fl (81.0-99.0); MEAN CORPUSCULAR HGB 23.2 pg (27.0-31.0); MEAN CORPUSCULAR HGB CONC 27.6 g/dl (33.0-37.0); MEAN PLATELET VOLUME 11.1 fl (9.6-12.3); MONO # 0.8 10*3/uL (0.1-1.0); MONO % 7.7 % (3.0-9.0); NEUT # 5.4 10*3/uL (2.3-7.9); NEUT % 55.1 % (47.0-73.0); PLATELET COUNT AUTOMATED 272 10*3/uL (130-400); RED CELL DISTRI WIDTH 16.3 % (0-14.5); WHITE BLOOD COUNT 9.8 10*3/uL (4.8-10.8)
[2019-06-10 06:53] LABS: BUN 7 mg/dl (7-24); CHLORIDE 111 mmol/L (98-107); CREATININE 0.62 mg/dL (0.55-1.02); POTASSIUM 3.6 mmol/L (3.5-5.1); SODIUM 144 mmol/L (136-145)
[2019-06-10] MEDS ORDERED: LISINOPRIL20 MG PO (07:05)
[2019-06-10] MEDS ORDERED: CIPRO500 MG PO (07:05)
[2019-06-10] MEDS ORDERED: METOPROLOL SUCC25 M2 PO (07:05)
[2019-06-10] MEDS ORDERED: AMLODIPINE BESYL5 MG PO (07:05)
--- NOTE | 2019-06-10 07:30 | NUR ---
DR FORBES HERE TO ASSESS PATIENT AND DISCUSS PLAN OF CARE.
--- NOTE | 2019-06-10 07:42 | NUR ---
24 HR chart check completed.
[2019-06-10 08:00] VITALS: BP 155/75
--- NOTE | 2019-06-10 09:00 | NUR ---
SITTING AT SIDE OF BED, EATING WITH NO DISTRESS NOTED. RESPIRATIONS EASY. LUNGS DIMINISHED, CLEAR. PULSE OX 93% RA. +1 BLE EDEMA. CALL LIGHT WITHIN REACH. NO VOICED COMPLAINTS.
--- NOTE | 2019-06-10 11:00 | NUR ---
VISITING WITH FAMILY
[2019-06-10 12:00] VITALS: BP 100/88
--- NOTE | 2019-06-10 13:00 | NUR ---
DR FORBES CONTACTED REGARDING ORDERED LABS. OK FOR DISCHARGE
--- NOTE | 2019-06-10 14:20 | NUR ---
Discharge instructions reviewed with patient/family. Patient receptive and verbalizes understanding. Written instructions given to patient/family. PATIENT DISCHARGED VIA WC IN CARE OF CLARISSA OLEA
== END 2019-06-10 14:20 | disposition home or self-care (01) | DRG 690 ==
LOC: ED 14:36 → EDHOLD 17:25 → 5E 18:12
PROVIDERS: Emergency Medicine; ADMIT Internal Medicine
DX: N39.0 Urinary tract infection, site not specified (principal); I16.9 Hypertensive crisis, unspecified; E87.2 Acidosis; I10 Essential (primary) hypertension; M19.90 Unspecified osteoarthritis, unspecified site; E78.2 Mixed hyperlipidemia; D64.9 Anemia, unspecified; F51.01 Primary insomnia; B96.1 Klebsiella pneumoniae [K. pneumoniae] as the cause of diseases classified elsewhere; E78.5 Hyperlipidemia, unspecified; E03.9 Hypothyroidism, unspecified; M10.9 Gout, unspecified; J44.9 Chronic obstructive pulmonary disease, unspecified; Z90.710 Acquired absence of both cervix and uterus; Z82.61 Family history of arthritis; Z88.2 Allergy status to sulfonamides; Z82.5 Family history of asthma and other chronic lower respiratory diseases; Z83.79 Family history of other diseases of the digestive system

== ENCOUNTER 2019-06-21 11:36 | Inpatient (IN) | payer OTHER ==
[~2019-06-21] VITALS: Ht 170.2 cm; Wt 113.2 kg
[~2019-06-21 11:36] MED LIST changes: +CIPRO500 MG PO; +LISINOPRIL20 MG PO; +METOPROLOL SUCC25 M2 PO; +VITAMIN D32000 UNIT PO
[2019-06-21 11:50] VITALS: BP 128/61
--- NOTE | 2019-06-21 11:50 | NUR ---
A 73, admitted to , under the services of Dr. ESTHER NEGRETE,PJ Sanchez with a diagnosis of COPD. Chief complaint is COPD. Patient arrived via bed from [place]. Monitor applied. Initial assessment completed. Vital signs taken and recorded. DR. ESTHER NEGRETE,PJ Sanchez notified of admission to the unit. Orders received. See assessment for past medical history, medications and allergies. Patient and/or family oriented to unit. [facility] visitation policy reviewed. Clothing/patient valuable form completed. JONATHAN SMITH
--- NOTE | 2019-06-21 11:59 | NUR ---
MED REC UPDATED PER POLICY.
[2019-06-21 12:00] VITALS: BP 128/61
[2019-06-21] MEDS ORDERED: Lopressor25 MG PO (12:02)
--- NOTE | 2019-06-21 12:38 | NUR ---
DR. FERRO CONSULT CALLED TO [facility], THEY WILL NOTIFY HIM
[2019-06-21 13:04] LABS: BASO # 0.1 10*3/uL (0.0-0.1); BASO % 1.1 % (0.0-1.0); EOS # 0.2 10*3/uL (0.0-0.4); EOS % 1.9 % (1.0-4.0); HEMATOCRIT 31.9 % (37.0-47.0); HEMOGLOBIN 8.9 g/dl (12.0-16.0); MEAN CELL VOLUME 84.6 fl (81.0-99.0); MEAN CORPUSCULAR HGB 23.6 pg (27.0-31.0); MEAN CORPUSCULAR HGB CONC 27.9 g/dl (33.0-37.0); MEAN PLATELET VOLUME 10.3 fl (9.6-12.3); MONO # 1.1 10*3/uL (0.1-1.0); MONO % 9.5 % (3.0-9.0); NEUT # 7.8 10*3/uL (2.3-7.9); NEUT % 69.1 % (47.0-73.0); PLATELET COUNT AUTOMATED 342 10*3/uL (130-400); RED BLOOD COUNT 3.77 10*6/uL (4.10-5.10); RED CELL DISTRI WIDTH 17.6 % (0-14.5); WHITE BLOOD COUNT 11.3 10*3/uL (4.8-10.8)
[2019-06-21 13:20] LABS: ALBUMIN 3.1 gm/dl (3.1-4.5); ALKALINE PHOSPHATASE 54 U/L (45-117); BUN 12 mg/dl (7-24); CHLORIDE 108 mmol/L (98-107); CREATININE 0.76 mg/dL (0.55-1.02); POTASSIUM 4.6 mmol/L (3.5-5.1); SGOT/AST 22 IU/L (3-35); SGPT/ALT 23 U/L (12-78); SODIUM 141 mmol/L (136-145)
--- NOTE | 2019-06-21 13:45 | NUR ---
PT COMPLAIN OF BILATERAL LOWER EXTREMITY PAIN 8/10, TYLENOL AND ULTRAM GIVEN
--- NOTE | 2019-06-21 14:29 | NUR ---
tylenol and ultram effective for pain
[2019-06-21 16:00] VITALS: BP 122/56
[2019-06-21 20:00] VITALS: BP 130/60
[2019-06-22] VITALS: BP 108/44
[2019-06-22 08:00] VITALS: BP 110/60
--- NOTE | 2019-06-22 08:54 | NUR ---
PHYSICAL THERAPY Screen received please consult Physcial Therapy if pt has a functional decline from baseline, thank you. Gabriela Balderas PT
--- NOTE | 2019-06-22 09:00 | NUR ---
DR. ESTEVEZ HERE TO SEE PATIENT ON CONSULT
--- NOTE | 2019-06-22 09:00 | NUR ---
Digital Forensic Analyst in to talk to patient. Patient states lives at home with her . There are 0 steps in the home. Physician: Dr. Len Guillen Pharmacy: [facility] Home health services: none Patient's level of ADLs: MINIMAL ASSIST Patient has working utilities: yes DME: cane Follow-up physician's appointment after d/c: she prefers to make her own follow up appt after discharge Does patient want to access PORTAL?: no Discharge plan discussed with patient. She lives at home with her . She is normally independent in her ADLs and ambulates with a cane. Discussed short term SNF and home health care services and refuses either. When medically stable she will be discharged to home. Her will provide transportation on discharge. Dr. Rendon consult for anxiety. Treating COPD with rocephin, pulmicort, and duonemansoor. LUNA MCNAMARA
[2019-06-22 12:00] VITALS: BP 111/59
--- NOTE | 2019-06-22 12:17 | NUR ---
Nursing screen and chart reviewed. Patient admitted with COPD. If patient should have a decline in ADLs from baseline, then refer to occupational therapy. Thank you. Carolin Krishna OTr/L
--- NOTE | 2019-06-22 13:27 | NUR ---
MEDICATED WITH ULTRAM ORDERED FOR COMPLAINTS OF CALF PAIN. RATES PAIN A 6 ON A PAIN SCALE OF 1-10
--- NOTE | 2019-06-22 14:00 | NUR ---
VOICES ULTRAM WAS EFFECTIVE FOR LEG CRAMPS
[2019-06-22 16:00] VITALS: BP 110/62
[2019-06-22 20:00] VITALS: BP 143/51
--- NOTE | 2019-06-22 22:34 | NUR ---
24 HOUR CHART CHECK COMPLETE.
[2019-06-23] VITALS: BP 117/46
[2019-06-23 07:43] VITALS: BP 122/60
--- NOTE | 2019-06-23 08:22 | NUR ---
PT WOKE EASILY, A&OX3, SITTING UP IN BED, NO COMPLAINTS AT THIS TIME, WILL CONTINUE TO MONITOR. WEI LOCO [facility]
--- NOTE | 2019-06-23 09:38 | NUR ---
PT UP IN BED, HAD BREAKFAST, VISITING. WILL CONTINUE TO MONITOR [facility]
--- NOTE | 2019-06-23 10:57 | NUR ---
Spoke to Dr. Guillen. Patient is now agreeable to [facility] for anxiety, depression. New orders received for [facility] referral. [facility] notified.
[2019-06-23 11:57] VITALS: BP 125/53
--- NOTE | 2019-06-23 12:00 | NUR ---
[facility] NOTIFIED OF CONSULT FOR ADMISSION TO U. PATIENT IS NOW AGREEABLE
--- NOTE | 2019-06-23 12:05 | NUR ---
PT RESTING COMFORTABLY NO COMPLAINTS AT THIS TIME. WEI BERUMEN SPNRCC
--- NOTE | 2019-06-23 12:32 | NUR ---
DR. ALCOCER NOTIFIED OF CONSULT
--- NOTE | 2019-06-23 13:15 | NUR ---
SPOKE WITH DR. SANTANA REGARDING U. PATIENT REFUSES TO GO. SHE STATES THAT SHE CANNOT BE CONFINED TO THE AREA FOR A LONG TIME AND THAT SHE DOESNT FEEL THAT SHE NEEDS TO GO TO [facility]. [facility] NOTIFIED OF HER REFUSAL
--- NOTE | 2019-06-23 13:30 | NUR ---
PT FINISHED LUNCH IS SITTING UP IN BED. WEI LOCO SP[facility]
--- NOTE | 2019-06-23 13:37 | NUR ---
BARBRA and and Field Marketing Team Leader Cindy. Patient stated that she is not interested in going to [facility]. Patient stated that she is willing to try the new medications that was recommended for her. Patient stated she is not homicidal or suicidal. Patient stated she is just a crier and that she cries alot. Patient stated that she does not feel as if she is depressed. Patient also stated that she does have anxiety, but "who doesn't". Patient stated she if the medicine works for her she does plan on following up outpatient with someone. Case Management to follow. -BARBRA Meza
--- NOTE | 2019-06-23 13:39 | NUR ---
Power Line Installer And Repairer in to see patient. Discussed U stay and she refuses. She is agreeable to the [facility] medications and outpatient follow up. She denies any home needs at this time. When medically stable she will be discharged to home.
[2019-06-23 16:00] VITALS: BP 120/52
[2019-06-23 20:00] VITALS: BP 131/57
--- NOTE | 2019-06-23 20:55 | NUR ---
PT GIVEN ULTRAM PO FOR C/O GENERALIZED PAIN AT THIS TIME. PT STATES THAT PAIN IS A 7 ON 1-10 SCALE. WILL MONITOR FOR EFFECTIVENESS. PT LYING IN BED. HOB ELEVATED. ALL SAFETY MEASURES ARE IN PLACE. CALL LIGHT IN REACH.
[2019-06-23 21:00] VITALS: BP 138/70
[2019-06-24] VITALS: BP 136/47
--- NOTE | 2019-06-24 05:09 | NUR ---
24 HR chart check completed.
--- NOTE | 2019-06-24 05:22 | NUR ---
PT GIVEN ULTRAM FOR C/O GENERALIZED PAIN. WILL MONITOR FOR EFFECTIVENESS.
[2019-06-24 08:00] VITALS: BP 142/68
[2019-06-24 12:00] VITALS: BP 169/65
[2019-06-24 16:00] VITALS: BP 137/55
[2019-06-24 20:00] VITALS: BP 154/61
--- NOTE | 2019-06-24 21:16 | NUR ---
ULTRAM GIVEN TO PT AT THIS TIME PER PRN ORDER FOR C/O GENERALIZED BODY ACHES/PAIN. WILL MONITOR FOR EFFECTIVENESS. PT LYING IN BED. RESPIRATIONS EASY AND UNLABORED ON ROOM AIR. NO FURTHER S/S OF DISTRESS AT THIS TIME. CALL LIGHT IN REACH.
--- NOTE | 2019-06-24 22:16 | NUR ---
ULTRAM EFFECTIVE PER PT.
[2019-06-25] VITALS: BP 144/70
--- NOTE | 2019-06-25 04:00 | NUR ---
Hep Lock discontinued to pt right antecubital due to site leaking. Site asymptomatic. Pressure applied. Sterile dressing applied. VANESSA SIDDIQI
--- NOTE | 2019-06-25 04:30 | NUR ---
IV started left wrist with #24 protective cath after 0 attempts. Site prepped with Chloroprep. Sterile dressing applied. Patient tolerated procedure well. VANESSA SIDDIQI
[2019-06-25 06:16] LABS: BASO % 0.4 % (0.0-1.0); EOS % 0.5 % (1.0-4.0); HEMATOCRIT 31.7 % (37.0-47.0); HEMOGLOBIN 8.7 g/dl (12.0-16.0); LYMPH # 1.2 10*3/uL (1.3-4.4); LYMPH % 22.5 % (27.0-41.0); MEAN CELL VOLUME 83.6 fl (81.0-99.0); MEAN CORPUSCULAR HGB CONC 27.4 g/dl (33.0-37.0); MONO # 0.1 10*3/uL (0.1-1.0); MONO % 1.6 % (3.0-9.0); NEUT # 4.1 10*3/uL (2.3-7.9); NEUT % 74.5 % (47.0-73.0); PLATELET COUNT AUTOMATED 305 10*3/uL (130-400); RED BLOOD COUNT 3.79 10*6/uL (4.10-5.10); RED CELL DISTRI WIDTH 17.3 % (0-14.5); WHITE BLOOD COUNT 5.5 10*3/uL (4.8-10.8)
[2019-06-25 06:31] LABS: BUN 13 mg/dl (7-24); CHLORIDE 113 mmol/L (98-107); POTASSIUM 4.2 mmol/L (3.5-5.1); SGOT/AST 23 IU/L (3-35); SGPT/ALT 23 U/L (12-78); SODIUM 142 mmol/L (136-145)
[2019-06-25 06:32] LABS: ALKALINE PHOSPHATASE 51 U/L (45-117); CREATININE 0.69 mg/dL (0.55-1.02)
[2019-06-25 08:00] VITALS: BP 138/58
--- NOTE | 2019-06-25 11:52 | NUR ---
DR FORBES CALLED UNIT, ORDERS RECEIVED FOR DR SOTO CONSULT FOR COLONOSCOPY.
[2019-06-25 12:00] VITALS: BP 132/80; BP 160/56
--- NOTE | 2019-06-25 13:04 | NUR ---
DR SOTO CALLED RE: CONSULT. ORDERS RECEIEVED FOR COLO PREP FOR COLO TOMORROW. DR CHAUDHRY MADE AWARE OF BRONCH SCHEDULED FOR TOMORROW ALSO. ORDERS TO KEEP COLO ORDERED AND HE WILL SEE THE PT TOMORROW.
[2019-06-25 16:00] VITALS: BP 173/74
--- NOTE | 2019-06-25 18:50 | NUR ---
PT STATES SHE WOULD RATHER WAIT FOR THE COLONOSCOPY BECAUSE OF THE BRONCH IN THE MORNING. SPOKE WITH DR SOTO, ORDERS RECEIVED TO CANCEL THE COLONOSCOPY
[2019-06-25 20:00] VITALS: BP 159/61
--- NOTE | 2019-06-25 20:04 | NUR ---
SUPERVISOR LAUNDRY CALLED STATING PT'S HR UP TO 120S-130S. RN IN TO SEE PT. PT UP USING BATHROOM. PT DENIES ANY PAIN/PALPITATIONS/SOB/DISCOMFORT. WILL MONITOR.
--- NOTE | 2019-06-25 22:57 | NUR ---
PT REQUESTED AND RECEIVED PO ULTRAM PER PRN ORDER FOR C/O PAIN IN SHOULDERS AND KNEES RATED 7/10. STATES SCHEDULED TYLENOL INEFFECTIVE. WILL MONITOR. CALL LIGHT LEFT IN REACH.
--- NOTE | 2019-06-25 23:25 | NUR ---
PT C/O SOME SOB AND COUGHING. POX 90% ON ROOM AIR. O2 APPLIED AT 2L. POX >92% AT THIS TIME. WILL CONTINUE TO MONITOR. CALL LIGHT IN REACH.
[2019-06-25 23:49] VITALS: BP 148/80
--- NOTE | 2019-06-25 23:50 | NUR ---
PT'S POX 94% ON 2L NC. PT PLACED ON ROOM AIR. POX MAINTAINING BETWEEN 92-94%. REPEAT BP 148/80 MANUALLY. WILL MONITOR. CALL LIGHT IN REACH.
[2019-06-26] VITALS (9 sets, daily range): BP systolic 140–184; BP diastolic 57–97
--- NOTE | 2019-06-26 02:41 | NUR ---
PT AWAKE IN ROOM, UP TO BATHROOM. PT STATES COUGHING HAS SUBSIDED "A LITTLE BIT" BUT SHE IS STILL HAVING COUGHING SPELLS. RN OFFERED TO CALL DR PELT INSPECTOR TO GET MEDICATION TO HELP WITH COUGH. PT DENIES NEED AT THIS TIME. WILL MONITOR. CALL LIGHT LEFT IN REACH.
[2019-06-26 06:17] LABS: BASO % 0.1 % (0.0-1.0); EOS % 0.1 % (1.0-4.0); HEMATOCRIT 29.6 % (37.0-47.0); HEMOGLOBIN 8.2 g/dl (12.0-16.0); LYMPH # 1.5 10*3/uL (1.3-4.4); MEAN CELL VOLUME 84.1 fl (81.0-99.0); MEAN CORPUSCULAR HGB 23.3 pg (27.0-31.0); MEAN CORPUSCULAR HGB CONC 27.7 g/dl (33.0-37.0); MONO # 0.5 10*3/uL (0.1-1.0); MONO % 3.5 % (3.0-9.0); NEUT # 11.7 10*3/uL (2.3-7.9); NEUT % 84.2 % (47.0-73.0); NUCLEATED RED BLOOD CELL 0.1 % (0.0-0.0); PLATELET COUNT AUTOMATED 300 10*3/uL (130-400); RED BLOOD COUNT 3.52 10*6/uL (4.10-5.10); RED CELL DISTRI WIDTH 17.2 % (0-14.5); WHITE BLOOD COUNT 13.9 10*3/uL (4.8-10.8)
--- NOTE | 2019-06-26 06:26 | NUR ---
PO LABETOLOL GIVEN WITH SMALL SIP OF WATER FOR ELEVATED BP 163/67. HR 98 PER CM. WILL MONITOR.
[2019-06-26 06:35] LABS: ALBUMIN 2.8 gm/dl (3.1-4.5); BUN 19 mg/dl (7-24); CHLORIDE 113 mmol/L (98-107); CREATININE 0.67 mg/dL (0.55-1.02); POTASSIUM 4.8 mmol/L (3.5-5.1); SGOT/AST 15 IU/L (3-35); SGPT/ALT 25 U/L (12-78); SODIUM 144 mmol/L (136-145); TOTAL PROTEIN 6.6 gm/dL (6.4-8.2)
[2019-06-26 06:36] LABS: ALKALINE PHOSPHATASE 46 U/L (45-117)
--- NOTE | 2019-06-26 07:30 | NUR ---
PATIENT TAKEN OFF FLOOR FOR SCHEDULED PROCEDURE.
--- NOTE | 2019-06-26 09:00 | NUR ---
Net Solutions Architect in to see patient. She is currently not in her room. She is having a bronchoscopy. Will follow up at a later time.
--- NOTE | 2019-06-26 09:45 | NUR ---
PT ARRIVED BACK ON FLOOR AT 0935. A&OX3, ANAT@3, HEART SOUNDS REG, EXP WHEEZE IN LUNGS, EQUAL BILATERAL CLOTH FINISHING RANGE BACK TENDER. CAP REFILL <3. EDEMA PRESENT. NO C/O PAIN AT THIS TIME. WILL CONTINUE TO MONITOR. SVEN LYON.
--- NOTE | 2019-06-26 10:51 | NUR ---
DOCUMENTATION COMPLETED. PT RESTING IN BED WATCHING TV. NO COMPLAINTS OF PAIN AT THIS TIME. WILL CONTINUE TO MONITOR. CALL LIGHT IN REACH. SVEN LYON
--- NOTE | 2019-06-26 12:02 | NUR ---
ASSESSMENT AND DOCUMENTATION COMPLETED. PT PLEASANT AND COOPERATIVE.PT SITTING IN CHAIR EATING LUNCH. DENIES PAIN AND SOB AT THIS TIME. WILL CONTINUE TO MONITOR. CALL LIGHT WITHIN REACH. SVEN LYON
--- NOTE | 2019-06-26 13:15 | NUR ---
IV SITE EDEMATOUS AND TENDER, NO BLOOD RETURN AND DID NOT FLUSH EASILY. D/C'D AT THIS TIME, CATH INTACT. #24 INSERTED IN LA WITHOUT DIFFICULTY, GOOD BLOOD RETURN AND FLUSHES WITH EASE. PT TOLERATED WELL. SVEN CHNADLER SPNRCC
--- NOTE | 2019-06-26 17:26 | NUR ---
NOTIFIED REGARDING ELEVATED BP. NEW ORDERS RECEIVED.
--- NOTE | 2019-06-26 19:42 | NUR ---
NOTIFIED OF BP 162/68, DOWN FROM 180/81 AT 1600. DISCUSSED LABETOLOL 200 MG GIVEN AT 1738 AND NEXT SCHEDULED DOSE SCHEDULED AT 2200. CALLED TO CLARIFY WHAT WANTED, MEDICATIONS SCHEDULED ONLY 4.5 HRS APART. DO NOT GIVE 2200 DOSE OF LABETOLOL TONIGHT PER . GIVE DOSE AT 1000 & 2200 TOMORROW ORDERED.
--- NOTE | 2019-06-26 20:10 | NUR ---
HERE. INSTRUCTED TO ORDER EGD/COLO FOR WEDNESDAY. CLEAR LIQUID DIET PREP ALL DAY WEDNESDAY 06/27. HOLD ALL BLOOD THINNERS.
--- NOTE | 2019-06-26 21:30 | NUR ---
PO ULTRAM ADMINISTERED PER PRN ORDER FOR C/O PAIN IN LOWER BACK RATED 8/10. WILL MONITOR EFFECTIVENESS. CALL LIGHT LEFT IN REACH.
--- NOTE | 2019-06-26 23:19 | NUR ---
EARLIER MEDICATION EFFECTIVE PER PT. DENIES ANY OTHER NEEDS AT THIS TIME. WILL MONITOR. CALL LIGHT IN REACH.
[2019-06-27] VITALS: BP 156/71
--- NOTE | 2019-06-27 01:59 | NUR ---
PT ASLEEP IN BED. RESPIRATIONS EASY. NO S/S OF DISTRESS NOTED. WILL MONITOR. CALL LIGHT IN REACH.
--- NOTE | 2019-06-27 03:37 | NUR ---
PT MEDICATED W/ULTRAM FOR C/O FRONTAL H/A 02/18. WILL MONITOR FOR EFFECIVENESS.
[2019-06-27 06:43] LABS: HEMATOCRIT 29.4 % (37.0-47.0); HEMOGLOBIN 8.1 g/dl (12.0-16.0); MEAN CELL VOLUME 84.5 fl (81.0-99.0); MEAN CORPUSCULAR HGB 23.3 pg (27.0-31.0); MEAN CORPUSCULAR HGB CONC 27.6 g/dl (33.0-37.0); MEAN PLATELET VOLUME 11.1 fl (9.6-12.3); NUCLEATED RED BLOOD CELL 0.1 10*3/uL (0.0-0.0); NUCLEATED RED BLOOD CELL 0.3 % (0.0-0.0); PLATELET COUNT AUTOMATED 309 10*3/uL (130-400); RED BLOOD COUNT 3.48 10*6/uL (4.10-5.10); RED CELL DISTRI WIDTH 17.2 % (0-14.5); WHITE BLOOD COUNT 18.7 10*3/uL (4.8-10.8)
[2019-06-27 06:54] LABS: ALBUMIN 2.7 gm/dl (3.1-4.5); BUN 24 mg/dl (7-24); CHLORIDE 111 mmol/L (98-107); CREATININE 0.73 mg/dL (0.55-1.02); POTASSIUM 4.6 mmol/L (3.5-5.1); SGOT/AST 20 IU/L (3-35); SGPT/ALT 25 U/L (12-78); SODIUM 142 mmol/L (136-145)
[2019-06-27 06:55] LABS: ALKALINE PHOSPHATASE 48 U/L (45-117); TOTAL PROTEIN 6.6 gm/dL (6.4-8.2)
--- NOTE | 2019-06-27 07:00 | NUR ---
REPORT RECEIVED FROM NEUROLOGY EPILEPSY PHYSICIAN NURSE. PT AWAKE AT THIS TIME. VOICES NO COMPLAINTS. CALL LIGHT IN REACH.
[2019-06-27 07:16] LABS: ATYPICAL LYMPHS 1 % (0-0); PLATELET SUFFICIENCY NORMAL (NORMAL); TOTAL CELLS COUNTED 100 #CELLS
[2019-06-27 08:00] VITALS: BP 168/74
--- NOTE | 2019-06-27 10:30 | NUR ---
Cardiac Monitor Technician in to see patient. No new needs or request at this time. She is not feeling well and coughing. She had a bronchoscopy yesterday and is scheduled for a colo tomorrow. Discussed short term SNF and home health care services and she refuses both. sitting at bedside. When medically stable she will be discharged to home.
[2019-06-27 12:00] VITALS: BP 139/63
--- NOTE | 2019-06-27 14:31 | NUR ---
SPOKE WITH DR. ALCOCER REGARDING HYPOXIC EPISODE THIS AM. ORDERED ABG'S AND CHEST XRAY. CALL WITH RESULTS.
[2019-06-27 15:39] LABS: ARTERIAL BLOOD GAS PH 7.313 (7.35-7.45)
[2019-06-27 16:00] VITALS: BP 164/84
[2019-06-27 18:53] LABS: ACID FAST SPEC PROCESSING Concentration (.)
--- NOTE | 2019-06-27 19:05 | NUR ---
CHEST XRAY REPORT STILL NOT BACK TO CALL DR. ALCOCER.
--- NOTE | 2019-06-27 19:52 | NUR ---
PT REFUSING TO WEAR ORDERED BIPAP AT THIS TIME. STATES SHE HAS TO USE THE BATHROOM TOO MUCH DUE TO COLO PREP. WILL ATTEMPT AT LATER TIME.
[2019-06-27 20:00] VITALS: BP 168/72
--- NOTE | 2019-06-27 21:55 | NUR ---
PT HAD LARGE BOWEL MOVEMENT IN BED. AIDES IN TO HELP PT CLEAN UP & NEW BED LINENS/GOWN/BRIEF/CHUCKS PROVIDED. BEDSIDE COMMODE PLACED IN ROOM FOR EASIER ACCESS TO TOILETING WHILE PREPPING FOR COLO. PT DENIES ANY FURTHER NEEDS AT THIS TIME.
--- NOTE | 2019-06-27 22:30 | NUR ---
PO ULTRAM ADMINISTERED PER PRN ORDER FOR C/O PAIN IN BACK RATED 8/10. WILL MONITOR EFFECTIVENESS. PT STILL NOT WILLING TO WEAR BIPAP.
--- NOTE | 2019-06-27 22:37 | NUR ---
HEP LOCK OCCLUDED. REMOVED AND NEW 22G INSERTED INTO LEFT WRIST ON FIRST ATTEMPT WITHOUT DIFFICULTY. PATIENT TOLERATED WELL.
--- NOTE | 2019-06-27 23:55 | NUR ---
PT PLACED ON BIPAP BY RESPIRATORY. CONTINUOUS POX APPLIED PER POLICY. WILL MONITOR.
[2019-06-28] VITALS (9 sets, daily range): BP systolic 140–166; BP diastolic 55–84
--- NOTE | 2019-06-28 06:04 | NUR ---
PT TAKEN OFF BIPAP AT THIS TIME. O2 APPLIED VIA 3L NC. PT REQUESTING TO SELF-ADMINISTER FLEETS ENEMA. WILL FOLLOW WITH TAP WATER ENEMA NEEDED. WILL MONITOR. CALL LIGHT IN REACH.
[2019-06-28 06:18] LABS: HEMATOCRIT 30.7 % (37.0-47.0); HEMOGLOBIN 8.4 g/dl (12.0-16.0); MEAN CELL VOLUME 85.3 fl (81.0-99.0); MEAN CORPUSCULAR HGB 23.3 pg (27.0-31.0); MEAN CORPUSCULAR HGB CONC 27.4 g/dl (33.0-37.0); MEAN PLATELET VOLUME 10.5 fl (9.6-12.3); NUCLEATED RED BLOOD CELL 0.2 10*3/uL (0.0-0.0); NUCLEATED RED BLOOD CELL 1.3 % (0.0-0.0); PLATELET COUNT AUTOMATED 306 10*3/uL (130-400); RED CELL DISTRI WIDTH 17.2 % (0-14.5); WHITE BLOOD COUNT 15.9 10*3/uL (4.8-10.8)
[2019-06-28 06:33] LABS: ALBUMIN 2.9 gm/dl (3.1-4.5); ALKALINE PHOSPHATASE 47 U/L (45-117); BUN 22 mg/dl (7-24); CHLORIDE 109 mmol/L (98-107); CREATININE 0.68 mg/dL (0.55-1.02); SGOT/AST 18 IU/L (3-35); SGPT/ALT 27 U/L (12-78); SODIUM 142 mmol/L (136-145); TOTAL PROTEIN 6.6 gm/dL (6.4-8.2)
[2019-06-28 06:40] LABS: ACT PARTIAL THROMBO TIME 22.4 SECONDS (20.0-32.1); INTERNATIONAL NORM RATIO 0.9 (2.0-3.5)
--- NOTE | 2019-06-28 07:05 | NUR ---
TAP WATER ENEMA ADMINISTERED PER ORDER. PT IS RUNNING CLEAR, FOR THE MOST PART. PT STATES SHE CANNOT TOLERATE ANYMORE OF THE TAP WATER ENEMA AT THIS TIME. ABOUT 500 CCs TOTAL ADMINISTERED. WILL PASS ON TO AM SHIFT.
[2019-06-28 07:18] LABS: POLYCHROMASIA SLIGHT; TOTAL CELLS COUNTED 100 #CELLS
[2019-06-28 07:19] LABS: OVALOCYTES FEW; PLATELET SUFFICIENCY NORMAL (NORMAL); STOMATOCYTE FEW
--- NOTE | 2019-06-28 07:30 | NUR ---
ASSESSMENT COMPLETED AND DOCUMENTED. PT IS ALERT AND PLEASANT. SCATTERED RHONCHI THROUGHOUT. PT IS SITTING UP IN BED WITH NO COMPLAINTS AT THIS TIME. IS AT THE BEDSIDE VISITING. EMPTIED BEDSIDE COMMODE WITH CLEAR YELLOW STOOLS. WILL CONTINUE TO MONITOR THAT BOWELS ARE CLEAR FOR SCHEDULED COLONOSCOPY. KATHERINE [place] SPCC
[2019-06-28 07:35] LABS: ABG BASE EXCESS -3.3 mmol/L (-2.0-2.0); ARTERIAL BLOOD GAS PH 7.299 (7.35-7.45)
--- NOTE | 2019-06-28 09:00 | NUR ---
Remote Sensing Surveyor in to see patient. at bedside. No new needs or request at this time. She is scheduled for a colo tomorrow. Discussed short term SNF and home health care services and she refuses both. When medically stable she will be discharged to home.
--- NOTE | 2019-06-28 09:23 | NUR ---
PT RESTING IN BED WITH A C/O NAUSEA, BUT NO VOMITING. PT DENIES NEED FOR ANY NAUSEA MEDICATION AT THIS TIME. REPOSITIONED IN BED FOR COMFORT AND PT STATES "I'M STARTING TO FEEL BETTER, THANK YOU." CALL LIGHT IN REACH AND SITTING AT BEDSIDE. WILL CONTINUE TO MONITOR. KATHERINE [place] SP[facility]
--- NOTE | 2019-06-28 10:23 | NUR ---
PT IS RESTING IN BED COMFORTABLY AND HAS NOT HAD ANOTHER BOWEL MOVEMENT. [facility]
--- NOTE | 2019-06-28 11:43 | NUR ---
OFF FLOOR FOR COLONOSCOPY IN BED VIA OR STAFF. PT TOLERATED WELL. KATHERINE [place] [facility]
--- NOTE | 2019-06-28 11:50 | NUR ---
OFF FLOOR TO SURGERY
--- NOTE | 2019-06-28 13:15 | NUR ---
PT BACK TO FLOOR FROM COLONOSCOPY. PT C/O BACK PAIN. MEDICATED ORDERED PER SEP. PT IS LYING IN BED RESTING WITH AT THE BEDSIDE. CALL LIGHT WITH IN REACH. REPORT GIVEN TO YUMIKO MCKINLEY. KATHERINE OH [facility]
--- NOTE | 2019-06-28 15:46 | NUR ---
PT DOES NOT WANT ON BIPAP AT THIS TIME.
--- NOTE | 2019-06-28 21:19 | NUR ---
ULTRAM GIVEN PER PT REQUEST FOR C/O PAIN TO RT SIDE, WILL CONT TO MONITOR. CALL LIGHT WITHIN REACH.
--- NOTE | 2019-06-28 23:00 | NUR ---
PT. REFUSED BIPAP AT THIS TIME.
[2019-06-29] VITALS: BP 156/65
[2019-06-29 08:00] VITALS: BP 160/70
--- NOTE | 2019-06-29 08:00 | NUR ---
PT RESTING IN BED, NO DISTRESS NOTED. O2 INTACT AT 3L NC, ENCOURAGED BIPAP USE-PT REFUSED. PT DENIES ANY COMPLAINTS. CALL LIGHT WITHIN REACH.
--- NOTE | 2019-06-29 09:00 | NUR ---
case management visits with patient, she will be returning home when medically stable today or tomorrow, patient denies any home needs
[2019-06-29 12:00] VITALS: BP 161/55
[2019-06-29 16:00] VITALS: BP 155/65
[2019-06-29 20:00] VITALS: BP 166/72
--- NOTE | 2019-06-29 23:20 | NUR ---
PATIENT AGREEABLE TO BIPAP AT THIS TIME.
--- NOTE | 2019-06-29 23:53 | NUR ---
PATIENT WANTING BIPAP OFF. VERY ANXIOUS, CRYING. PATIENT PLACED BACK ON NC. WILL CONTINUE TO MONTIOR.
[2019-06-30] VITALS: BP 162/70
--- NOTE | 2019-06-30 00:42 | NUR ---
23:20 BIPAP INITIATED. PT AGREED TO USE BIPAP. TOLERATING WELL. RESP REGULAR AND UNLABORED. 23:50 PT REFUSING BIPAP. RN TOOL PT OFF OF BIPAP. PT PLACED ON 2 L NC.
--- NOTE | 2019-06-30 08:44 | NUR ---
PT SITTING UP IN CHAIR. RESP-EASY AND REGULAR. OXYGEN IN USE. C/O LEFT LOWER LEG PAIN, RATES PAIN 8 ON PAIN SCALE 0-10. MEDICATED WITH ULTRAM PO PER PRN ORDER, SEE EMAR. CALL LIGHT IN REACH. SEE SHIFT ASSESSMENT.
--- NOTE | 2019-06-30 09:00 | NUR ---
case management visits with patient, she states she will return home when medically stable, no home needs a this time
[2019-06-30 12:00] VITALS: BP 139/54
--- NOTE | 2019-06-30 14:37 | NUR ---
PT RESTING IN BED. STARTED DESENSITIVATION OF SULFA DRUG MIXED PER PHARMACY. PT TOOK 1CC OF BOTTLE MARKED FROM PHARMACY. SHE TOLERATED WITH NO PROBLEM. WILL CON'T TO MONITOR. CALL LIGHT IN REACH.
--- NOTE | 2019-06-30 15:30 | NUR ---
KEEP CHECKING ON PT SHE TOLERATED FIRST DOSE. MEDICATED WITH SECOND DOSE OF MEDICATION PER PHARMCY. TOLERATED WILL MONITOR.
[2019-06-30 16:00] VITALS: BP 150/57
--- NOTE | 2019-06-30 16:25 | NUR ---
IN ROOM. PT TOLERATING DOSES OF MEDICATION. NO RXN AT THIS TIME. MEDICATED WITH NEXT DOSE. WILL MONITOR. CALL LIGHT IN REACH.
--- NOTE | 2019-06-30 17:33 | NUR ---
PT RESTING IN BED. TOLERATED NEXT DOSE OF ORAL MED PER PHARMACY, SEE EMAR. AT HER SIDE. CALL LIGHT IN REACH.
--- NOTE | 2019-06-30 18:50 | NUR ---
PT RESTING IN BED. AT HER SIDE. TOLERATED NEXT DOSE OF ORAL MED, SEE EMAR. NO RXN'S AT THIS TIME. CALL LIGHT IN REACH.
[2019-06-30 20:00] VITALS: BP 158/65
--- NOTE | 2019-06-30 20:17 | NUR ---
LAST DOSE OF SULFA DESENSITIZATION GIVEN AT THIS TIME. PATIENT VOICES NO COMPLAINTS AT THIS TIME. NO SIGNS OF DISTRESS. RESPIRATIONS EASY, NON LABORED. PATIENT SITTING IN BED WITH IN ROOM. WILL CONTINUE TO MONITOR.
--- NOTE | 2019-06-30 20:45 | NUR ---
PATIENT UP SITTING IN CHAIR. VOICES NO COMPLAINTS. NO SIGNS OF AN ALLERGIC REACTION. WILL CONTINUE TO MONITOR.
--- NOTE | 2019-06-30 21:33 | NUR ---
PATIENT GIVEN FIRST DOSE OF SEPTRA D AT THIS TIME. ENCOURAGED TO DRINK WATER. PATIENT STILL SITTING UP IN CHAIR. NO SIGNS OF AN ALLERGIC REATION. RESPIRATIONS EASY,NON LABORED. PATIENT VOICES NO COMPLAINTS AT THIS TIME. WILL CONTINUE TO MONITOR.
[2019-07-01] VITALS: BP 153/50
--- NOTE | 2019-07-01 03:46 | NUR ---
PATIENT RESTING IN BED. NO SIGNS OF DISTRESS. RESPIRATIONS EASY, NON LABORED. BED IN LOWEST POSITION, CALL LIGHT WITHIN REACH. WILL CONTINUE TO MONITOR.
[2019-07-01 07:11] LABS: CREATININE 0.62 mg/dL (0.55-1.02)
[2019-07-01 07:41] LABS: HEMOGLOBIN 8.2 g/dl (12.0-16.0); MEAN CELL VOLUME 86.7 fl (81.0-99.0); MEAN CORPUSCULAR HGB 23.7 pg (27.0-31.0); MEAN CORPUSCULAR HGB CONC 27.3 g/dl (33.0-37.0); MEAN PLATELET VOLUME 10.9 fl (9.6-12.3); NUCLEATED RED BLOOD CELL 0.1 10*3/uL (0.0-0.0); NUCLEATED RED BLOOD CELL 0.5 % (0.0-0.0); PLATELET COUNT AUTOMATED 248 10*3/uL (130-400); RED BLOOD COUNT 3.46 10*6/uL (4.10-5.10); RED CELL DISTRI WIDTH 18.7 % (0-14.5); WHITE BLOOD COUNT 10.9 10*3/uL (4.8-10.8)
[2019-07-01 08:00] VITALS: BP 166/80
[2019-07-01 08:34] LABS: OVALOCYTES FEW; PLATELET SUFFICIENCY NORMAL (NORMAL); POLYCHROMASIA SLIGHT; TOTAL CELLS COUNTED 100 #CELLS
[2019-07-01 09:01] LABS: BUN 21 mg/dl (7-24); CHLORIDE 111 mmol/L (98-107); CREATININE 0.64 mg/dL (0.55-1.02); POTASSIUM 3.9 mmol/L (3.5-5.1); SODIUM 145 mmol/L (136-145)
[2019-07-01 12:00] VITALS: BP 130/71
[2019-07-01 16:00] VITALS: BP 138/72; BP 176/71
[2019-07-01 20:00] VITALS: BP 138/62
--- NOTE | 2019-07-01 20:03 | NUR ---
PATIENT IS RECIEVING BREATHING TREATMENT AT THIS TIME. WILL ASSESS WHEN DONE.
[2019-07-02] VITALS: BP 140/58
[2019-07-02 08:00] VITALS: BP 145/56
[2019-07-02 08:59] VITALS: BP 152/64
--- NOTE | 2019-07-02 10:25 | NUR ---
PT RESTING IN BED. RESP-EASY AND REGULAR. OXYGEN IN USE. NO C/O AT THIS TIME. CALL LIGHT IN REACH. SEE SHIFT ASSESSMENT.
[2019-07-02 12:00] VITALS: BP 167/59
[2019-07-02 16:00] VITALS: BP 148/51
--- NOTE | 2019-07-02 16:30 | NUR ---
PT RESTING IN BED. TOLERATED ROUTINE MED WITH NO PROBLEM. NO C/O AT THIS TIME. CALL LIGHT IN REACH. SEE SHIFT ASSESSMENT.
--- NOTE | 2019-07-02 19:45 | NUR ---
Patient resting quietly with no c/o discomfort. Respirations easy and regular. Vital signs stable. No overt distress. SALOMON BUI
[2019-07-02 20:00] VITALS: BP 156/62
--- NOTE | 2019-07-02 21:59 | NUR ---
Pt absolutely does not want to wear the BiPap tonight. Pt remains on 2L with an SpO2 of 96%.
--- NOTE | 2019-07-02 23:25 | NUR ---
24 HR CHART CHECK COMPLETE
[2019-07-03] VITALS: BP 158/46
--- NOTE | 2019-07-03 04:17 | NUR ---
PT OBSERVED RESTING QUIETLY IN ROOM ,SLEEPING, NO COMPLAINTS
--- NOTE | 2019-07-03 07:28 | NUR ---
Temper Mill Roller in to see patient. Discussed short term SNF and she is refusing. Discussed home health care services and she is agreeable with much discussion. When provided with a list of agencies she chose [facility]. demand planner notified.
[2019-07-03 08:00] VITALS: BP 148/56
--- NOTE | 2019-07-03 08:10 | NUR ---
PT SITTING UP IN CHAIR. RESP-EASY AND REGULAR. OXYGEN IN USE. NO C/O AT THIS TIME. TOLERATED ROUTINE MED WITH NO PROBLEM. CALL LIGHT IN REACH. SEE SHIFT ASSESSMENT.
--- NOTE | 2019-07-03 08:15 | NUR ---
Faxed home health care referral to [facility]
--- NOTE | 2019-07-03 10:37 | NUR ---
PHYSICAL THERAPY Jah completed pt moderate complexity level 36464 full report to follow pt would benefit from SNF however she and states she will go home. Will consider HH. PT to work on transfers, amb, balance/safety, strengthening, stair training. Gabriela Balderas PT
--- NOTE | 2019-07-03 10:46 | NUR ---
Occupational Therapy evaluation completed on 4 with full eval to follow. Precautions include obesity, oxygen use, IV UE, BLE edema,low complexity level 00586. Recommend OT per pOC for ADLs training, energy conservation/work simplification education, etc and home w/ at prior level Thank you. Mahnaz Krishna OTR/L
[2019-07-03 12:00] VITALS: BP 154/64
--- NOTE | 2019-07-03 12:00 | NUR ---
SITTING UP AT SIDE OF BED. TOLERATED ROUTINE MED WITH NO PROBLEM. CALL LIGHT IN REACH.
--- NOTE | 2019-07-03 15:54 | NUR ---
PT NOTES FAXED TO [facility] PER REQUEST.
[2019-07-03 16:00] VITALS: BP 157/42
--- NOTE | 2019-07-03 18:00 | NUR ---
PT TOLERATED ROUTINE MED WITH NO PROBLEM. NO C/O AT THIS TIME. CALL LIGHT IN REACH.
--- NOTE | 2019-07-03 19:50 | NUR ---
Patient resting quietly with no c/o discomfort. Respirations easy and regular. Vital signs stable. No overt distress. SALOMON BUI
[2019-07-03 20:00] VITALS: BP 150/70
--- NOTE | 2019-07-03 22:45 | NUR ---
PT COMPLAINS OF BACK PAIN PRN TRAMADOL GIVEN 02/18
--- NOTE | 2019-07-03 23:45 | NUR ---
PT HAS NO COMPLAINTS OF PAIN AFTER NORCO GIVEN
[2019-07-04] VITALS: BP 160/72
--- NOTE | 2019-07-04 02:52 | NUR ---
24 HR CHART CHECK COMPLETE
--- NOTE | 2019-07-04 04:11 | NUR ---
PT ASLEEP IN BED. RESPIRATIONS EASY. NO S/S OF DISTRESS NOTED. WILL MONITOR. CALL LIGHT LEFT IN REACH.
--- NOTE | 2019-07-04 07:15 | NUR ---
IN TO SEE PT. ASSESSMENT COMPLETED AT THIS TIME. PT CO SOB ON EXERTION AND A PRODUCTIVE COUGH. PT LYING IN BED NO S/S OF DISTRESS NOTED AT THIS TIME. CALL LIGHT IS WITHIN REACH. WILL CONTINUE TO MONITOR.
[2019-07-04 07:26] LABS: CREATININE 0.68 mg/dL (0.55-1.02)
[2019-07-04 08:00] VITALS: BP 158/68
--- NOTE | 2019-07-04 08:28 | NUR ---
PT CO BACK AND HIP PAIN RATED AN 8/10. MEDICATED WITH PRN TRAMADOL ORDERED. WILL CHECK EFFECTIVENESS. CALL LIGHT WITHIN REACH.
--- NOTE | 2019-07-04 08:35 | NUR ---
Pt seen this date for 32 minute 1:1 occupational therapy treatment. Pt seated on edge of bed upon therapists arrival. Pt stated "I don't feel good today" but agreed to participate in therapy. Pt completed sit to stand at SBA and performed functional mobility to bathroom to complete ADL tasks of combing hair and washing face for 4 minutes at SBA with no loss of balance noted. Pt performed functional mobility back to sit in recliner. Verbal and visual cues given for pursed lip breathing during ADL activities. Pt performed AROM exercises with verbal and visual cues for proper technique. Pt requested handout of exercises to take home. Hand out given. Pt reported feeling better at end of session. Phone and call light with in reach. Continue with OT POC. MONICA Hassan/Ashley
--- NOTE | 2019-07-04 09:00 | NUR ---
French Folder in to see patient. No new needs or request at this time. When medically stable she will be discharged to home with [facility] services. at bedside. Dr. Mitchell following with resolving acute tracheobronchitis and COPD, gradual improvement, and IV steroids.
--- NOTE | 2019-07-04 09:30 | NUR ---
PT STATES PAIN MED WAS EFFECTIVE RATING PAIN A 4/10 NOW. WILL CONTINUE TO MONITOR.
--- NOTE | 2019-07-04 09:35 | NUR ---
PHYSICAL THERAPY Patient seen this am 1:1 for therapy visit and was sitting up on EOB upon therapist arrival. Patient identified by name / and voices no new c/o's at this time. Patient transfers SBA and ambulates without AD, SBA, 100'x 1, demonstrating slow, steady alec, no LOB, however still mild "waddling" gait pattern. Patient returned to EOB sit and remained with call light and cell phone. Will continue per POC as tolerated, total treatment time 14 minutes. OT engineer first assistant present for observation only during CAR ELECTRONICS INSTALLER session. Noel Gonzales, CAR ELECTRONICS INSTALLER
[2019-07-04 12:00] VITALS: BP 154/64
--- NOTE | 2019-07-04 13:39 | NUR ---
PHYSICAL THERAPY CO-SIGN I approve of the Physical Therapy notes written above Gabriela Balderas PT
--- NOTE | 2019-07-04 15:35 | NUR ---
OCCUPATIONAL THERAPY CO-SIGN I approve of the Occupational Therapy notes written above. NETTIE CORONA OTR/Ashley
[2019-07-04 16:00] VITALS: BP 152/60
[2019-07-04 20:00] VITALS: BP 152/78
--- NOTE | 2019-07-04 21:51 | NUR ---
PATIENT REQUESTED ULTRAM AT THIS TIME FOR GENERALIZED BODY PAIN PATIENT STATED THAT "SHE HAS IT ALL OF THE TIME".
--- NOTE | 2019-07-04 22:30 | NUR ---
24 HOUR CHART CHECK COMPLETE
[2019-07-05] VITALS: BP 148/62
[2019-07-05 06:23] LABS: BASO % 0.1 % (0.0-1.0); EOS # 0.1 10*3/uL (0.0-0.4); EOS % 1.3 % (1.0-4.0); HEMATOCRIT 30.3 % (37.0-47.0); HEMOGLOBIN 8.4 g/dl (12.0-16.0); LYMPH # 3.5 10*3/uL (1.3-4.4); LYMPH % 36.6 % (27.0-41.0); MEAN CELL VOLUME 85.8 fl (81.0-99.0); MEAN CORPUSCULAR HGB 23.8 pg (27.0-31.0); MEAN CORPUSCULAR HGB CONC 27.7 g/dl (33.0-37.0); MEAN PLATELET VOLUME 10.5 fl (9.6-12.3); MONO # 0.7 10*3/uL (0.1-1.0); MONO % 7.1 % (3.0-9.0); NEUT # 5.1 10*3/uL (2.3-7.9); NEUT % 52.8 % (47.0-73.0); NUCLEATED RED BLOOD CELL 0.2 % (0.0-0.0); PLATELET COUNT AUTOMATED 179 10*3/uL (130-400); RED BLOOD COUNT 3.53 10*6/uL (4.10-5.10); WHITE BLOOD COUNT 9.6 10*3/uL (4.8-10.8)
[2019-07-05 08:00] VITALS: BP 130/82; BP 142/70; BP 144/62
--- NOTE | 2019-07-05 10:18 | NUR ---
DOES NOT USE BIPAP.
[2019-07-05 12:00] VITALS: BP 194/77
--- NOTE | 2019-07-05 14:18 | NUR ---
Dr. Guillen in and examined pt. States pt is not improving, refusing bipap, states she is still wheezing in fact it has worsened. Request that Dr. Mitchell be made aware, see if he will consider bronchoscopy for this pt. I spoke with Dr. Mitchell and notifed him of this.
--- NOTE | 2019-07-05 15:40 | NUR ---
Pt moved to 403-1 due to pt placement issues.
[2019-07-05 16:00] VITALS: BP 150/65
[2019-07-05 20:00] VITALS: BP 155/64
[2019-07-06] VITALS: BP 125/66
[2019-07-06 08:00] VITALS: BP 140/50
--- NOTE | 2019-07-06 09:00 | NUR ---
case management visits with patient, she will return home when medically stable and denies any home needs
[2019-07-06 12:00] VITALS: BP 144/62
--- NOTE | 2019-07-06 12:12 | NUR ---
HOME O2 ASSESSMENT ROOM AIR AT REST: SPO2 94% HR 68 RR 16 BP 144/62 ROOM AIR WITH AMBULATION: SPO2 90-94% ROOM AIR RECOVERY: SPO2 93% HR 86 RR 20 BP 145/74 PT. DID NOT REQUIRE SUPPLEMENTAL O2 AT REST OR DURING AMBULATION. RN NOTIFIED.
--- NOTE | 2019-07-06 12:50 | NUR ---
Spoke with Dr. Guillen regarding pt did not need oxygen with exertion or at rest.
--- NOTE | 2019-07-06 13:20 | NUR ---
PHYSICAL THERAPY Patient seen this pm 1:1 for therapy visit and was sitting up on EOB upon therapist arrival. Patient identified by name / and reports only mild 2/10 R hip pain. Patient transfers sit to stand SBA and ambulates without AD, SBA, 100'x 1, demonstrating mild "waddling" gait pattern, decreased stride and increased c/o R hip pain 4/10 following gait ex. Patient SpO2 93%, HR 85 bpm on RA as patient returned to EOB sit without LOB. Patient states her R hip pain pretty much goes away as soon she sits down to rest and seems to increase from prolonged standing activities. Patient remained EOB sit with call light, tray table, and telephone. Will continue per POC as tolerated, total treatment time 14 minutes. Noel Gonzales, SHEET HEATER HELPER
[2019-07-06] MEDS ORDERED: PULMICORT RESP0.5 MG NEB (13:26)
[2019-07-06] MEDS ORDERED: SEPTDS PO (13:26)
[2019-07-06] MEDS ORDERED: NORMODYNE,TRAN200 MG PO (13:26)
[2019-07-06] MEDS ORDERED: PRISTIQ50 MG PO (13:26)
[2019-07-06] MEDS ORDERED: ADV 500/50 DEVI (13:54)
--- NOTE | 2019-07-06 14:31 | NUR ---
Discharge instructions reviewed with patient/family. Patient receptive and verbalizes understanding. Follow-up care arranged. Written instructions given to patient/. Prescriptions that were printed given to pt. Pt aware she needs other scripts that were called into [facility]. Discharged in care of via wheelchair. MALLY DONALDSON
--- NOTE | 2019-07-07 07:23 | NUR ---
PHYSICAL THERAPY CO-SIGN I approve of the Physical Therapy notes written above. Gabriela Balderas PT
== END 2019-07-06 14:31 | disposition home health service (06) | DRG 189 ==
LOC: 4E 11:36
PROVIDERS: Internal Medicine; Internal Medicine Critical Care Medicine; Internal Medicine Gastroenterology; ADMIT Internal Medicine
PROC: 0B918ZZ Drainage of Trachea, Via Natural or Artificial Opening Endoscopic (ICD-10-PCS; principal; 2019-06-26)
PROC: 0B998ZZ Drainage of Lingula Bronchus, Via Natural or Artificial Opening Endoscopic (ICD-10-PCS; principal; 2019-06-26)
PROC: 0B9B8ZZ Drainage of Left Lower Lobe Bronchus, Via Natural or Artificial Opening Endoscopic (ICD-10-PCS; principal; 2019-06-26)
PROC: 0B9C8ZZ Drainage of Right Upper Lung Lobe, Via Natural or Artificial Opening Endoscopic (ICD-10-PCS; principal; 2019-06-26)
PROC: 0B9D8ZZ Drainage of Right Middle Lung Lobe, Via Natural or Artificial Opening Endoscopic (ICD-10-PCS; principal; 2019-06-26)
PROC: 5A09357 Assistance with Respiratory Ventilation, Less than 24 Consecutive Hours, Continuous Positive Airway Pressure (ICD-10-PCS; 2019-06-28)
PROC: 0DB68ZX Excision of Stomach, Via Natural or Artificial Opening Endoscopic, Diagnostic (ICD-10-PCS; 2019-06-28)
PROC: 0DBL8ZZ Excision of Transverse Colon, Via Natural or Artificial Opening Endoscopic (ICD-10-PCS; 2019-06-28)
DX: J96.21 Acute and chronic respiratory failure with hypoxia (principal); J44.1 Chronic obstructive pulmonary disease with (acute) exacerbation; F33.2 Major depressive disorder, recurrent severe without psychotic features; J44.0 Chronic obstructive pulmonary disease with (acute) lower respiratory infection; K22.10 Ulcer of esophagus without bleeding; J96.22 Acute and chronic respiratory failure with hypercapnia; J20.8 Acute bronchitis due to other specified organisms; I10 Essential (primary) hypertension; E66.01 Morbid (severe) obesity due to excess calories; M1A.9XX0 Chronic gout, unspecified, without tophus (tophi); G89.29 Other chronic pain; M47.9 Spondylosis, unspecified; H10.45 Other chronic allergic conjunctivitis; E03.9 Hypothyroidism, unspecified; R62.7 Adult failure to thrive; K21.0 Gastro-esophageal reflux disease with esophagitis; E78.2 Mixed hyperlipidemia; F51.01 Primary insomnia; E11.9 Type 2 diabetes mellitus without complications; B96.5 Pseudomonas (aeruginosa) (mallei) (pseudomallei) as the cause of diseases classified elsewhere; D50.9 Iron deficiency anemia, unspecified; T17.990A Other foreign object in respiratory tract, part unspecified in causing asphyxiation, initial encounter; X58.XXXA Exposure to other specified factors, initial encounter; F43.10 Post-traumatic stress disorder, unspecified; F41.1 Generalized anxiety disorder; K29.70 Gastritis, unspecified, without bleeding; K44.9 Diaphragmatic hernia without obstruction or gangrene; Z68.39 Body mass index [BMI] 39.0-39.9, adult; Y93.89 Activity, other specified; Y92.89 Other specified places as the place of occurrence of the external cause; Y99.8 Other external cause status; Z90.710 Acquired absence of both cervix and uterus; Z88.2 Allergy status to sulfonamides; Z87.891 Personal history of nicotine dependence; Z81.1 Family history of alcohol abuse and dependence

== ENCOUNTER 2019-07-26 09:11 | Emergency (ER) | payer OTHER ==
[~2019-07-26] VITALS: Ht 167.6 cm; Wt 112.9 kg
[~2019-07-26 09:11] MED LIST changes: +ADV 500/50 DEVI; +Lopressor25 MG PO; +NORMODYNE,TRAN200 MG PO; +PRISTIQ50 MG PO; +PULMICORT RESP0.5 MG NEB; +SEPTDS PO
[2019-07-26 10:31] LABS: BASO # 0.1 10*3/uL (0.0-0.1); BASO % 0.9 % (0.0-1.0); EOS # 0.3 10*3/uL (0.0-0.4); HEMATOCRIT 29.5 % (37.0-47.0); LYMPH # 2.2 10*3/uL (1.3-4.4); LYMPH % 31.1 % (27.0-41.0); MEAN CELL VOLUME 90.8 fl (81.0-99.0); MEAN CORPUSCULAR HGB 24.6 pg (27.0-31.0); MEAN CORPUSCULAR HGB CONC 27.1 g/dl (33.0-37.0); MEAN PLATELET VOLUME 10.1 fl (9.6-12.3); MONO # 0.7 10*3/uL (0.1-1.0); MONO % 9.8 % (3.0-9.0); NEUT # 3.7 10*3/uL (2.3-7.9); NEUT % 53.8 % (47.0-73.0); NUCLEATED RED BLOOD CELL 0.3 % (0.0-0.0); PLATELET COUNT AUTOMATED 283 10*3/uL (130-400); RED BLOOD COUNT 3.25 10*6/uL (4.10-5.10); RED CELL DISTRI WIDTH 21.3 % (0-14.5); WHITE BLOOD COUNT 6.9 10*3/uL (4.8-10.8)
[2019-07-26 10:42] LABS: ACT PARTIAL THROMBO TIME 22.5 SECONDS (20.0-32.1)
[2019-07-26 10:47] LABS: ALBUMIN 2.9 gm/dl (3.1-4.5); ALKALINE PHOSPHATASE 52 U/L (45-117); BUN 12 mg/dl (7-24); CHLORIDE 112 mmol/L (98-107); LIPASE 170 U/L (73-393); POTASSIUM 4.3 mmol/L (3.5-5.1); SGOT/AST 13 IU/L (3-35); SGPT/ALT 18 U/L (12-78); SODIUM 144 mmol/L (136-145); TOTAL PROTEIN 6.1 gm/dL (6.4-8.2); TROPONIN I < 0.015 ng/ml (<0.045)
== END 2019-07-26 13:38 | disposition home or self-care (01) ==
LOC: ED 09:11
PROVIDERS: Physician Assistant
DX: S80.12XA Contusion of left lower leg, initial encounter (principal); I10 Essential (primary) hypertension; J44.9 Chronic obstructive pulmonary disease, unspecified; E78.00 Pure hypercholesterolemia, unspecified; E03.9 Hypothyroidism, unspecified; Z88.2 Allergy status to sulfonamides; Z79.899 Other long term (current) drug therapy; Z79.82 Long term (current) use of aspirin; Z87.891 Personal history of nicotine dependence; W10.8XXA Fall (on) (from) other stairs and steps, initial encounter; Y93.89 Activity, other specified; Y92.89 Other specified places as the place of occurrence of the external cause; Y99.8 Other external cause status

== ENCOUNTER → 2019-08-01 | Outpatient (CLI) | payer OTHER ==
[2019-08-01 15:15] LABS: BUN 13 mg/dl (7-24); CHLORIDE 107 mmol/L (98-107); CREATININE 0.77 mg/dL (0.55-1.02); POTASSIUM 4.2 mmol/L (3.5-5.1); SODIUM 143 mmol/L (136-145)
== END | disposition home or self-care (01) ==
LOC: LAB 14:25
PROVIDERS: Internal Medicine
DX: I10 Essential (primary) hypertension (principal)

== ENCOUNTER → 2019-08-03 | Outpatient (CLI) | payer OTHER | END | disposition home or self-care (01) | LOC: US 12:11 | DX: I73.9 Peripheral vascular disease, unspecified (principal); I10 Essential (primary) hypertension; E11.9 Type 2 diabetes mellitus without complications; R60.9 Edema, unspecified ==

== ENCOUNTER → 2019-09-01 | Outpatient (CLI) | payer OTHER ==
[2019-09-01 10:06] LABS: BUN 16 mg/dl (7-24); CHLORIDE 105 mmol/L (98-107); CREATININE 0.76 mg/dL (0.55-1.02); POTASSIUM 3.8 mmol/L (3.5-5.1); SODIUM 139 mmol/L (136-145)
== END | disposition home or self-care (01) ==
LOC: LAB 09:02
PROVIDERS: Internal Medicine
DX: I50.32 Chronic diastolic (congestive) heart failure (principal)

== ENCOUNTER 2019-11-28 13:25 | Emergency (ER) | payer OTHER ==
[~2019-11-28] VITALS: Ht 170.1 cm; Wt 90.7 kg
[~2019-11-28 13:25] MED LIST changes: -NYST SUSP PO
[2019-11-28] MEDS ORDERED: NYST SUSP PO (14:54)
== END 2019-11-28 15:20 | disposition home or self-care (01) ==
LOC: ED 13:25
DX: K13.79 Other lesions of oral mucosa (principal); R07.0 Pain in throat; J44.9 Chronic obstructive pulmonary disease, unspecified; Z88.2 Allergy status to sulfonamides; Z79.899 Other long term (current) drug therapy; Z79.82 Long term (current) use of aspirin; Z87.891 Personal history of nicotine dependence

== ENCOUNTER → 2019-11-28 | Outpatient (CLI) | payer OTHER ==
[~2019-11-28] MED LIST changes: +NYST SUSP PO
[2019-11-29 05:10] LABS: RHEUMATOID ARTHRITIS FACTOR <10.0 IU/mL (0.0-13.9)
[2019-11-30 02:07] LABS: CCP ANTIBODIES IGG/IGA 9 units (0-19)
== END | disposition home or self-care (01) ==
LOC: LAB 13:06
PROVIDERS: Internal Medicine
DX: M1A.00X0 Idiopathic chronic gout, unspecified site, without tophus (tophi) (principal); I10 Essential (primary) hypertension; M06.9 Rheumatoid arthritis, unspecified

== ENCOUNTER 2020-05-20 23:10 | Inpatient (IN) | payer OTHER ==
[~2020-05-20] VITALS: Ht 170.1 cm; Wt 98.0 kg
[~2020-05-20 23:10] MED LIST changes: +NYST SUSP PO
[2020-05-20 23:21] VITALS: BP 161/61
[2020-05-21] VITALS (16 sets, daily range): BP systolic 156–189; BP diastolic 57–74
[2020-05-21 00:06] LABS: MEAN CELL VOLUME 67.1 fl (81.0-99.0); MEAN CORPUSCULAR HGB 16.8 pg (27.0-31.0); MEAN PLATELET VOLUME 9.9 fl (9.6-12.3); PLATELET COUNT AUTOMATED 306 10*3/uL (130-400); RED BLOOD COUNT 3.28 10*6/uL (4.10-5.10); RED CELL DISTRI WIDTH 18.6 % (0-14.5); WHITE BLOOD COUNT 10.4 10*3/uL (4.8-10.8)
[2020-05-21 00:22] LABS: ALBUMIN 2.9 gm/dl (3.1-4.5); ALKALINE PHOSPHATASE 65 U/L (45-117); BUN 12 mg/dl (7-24); CHLORIDE 102 mmol/L (98-107); CREATININE 0.92 mg/dL (0.55-1.02); LIPASE 150 U/L (73-393); POTASSIUM 3.9 mmol/L (3.5-5.1); SGOT/AST 11 IU/L (3-35); SGPT/ALT 11 U/L (12-78); SODIUM 136 mmol/L (136-145); TOTAL PROTEIN 7.4 gm/dL (6.4-8.2)
[2020-05-21 00:23] LABS: ACT PARTIAL THROMBO TIME 21.1 SECONDS (20.0-32.1)
[2020-05-21 00:25] LABS: PLATELET SUFFICIENCY NORMAL (NORMAL); TOTAL CELLS COUNTED 100 #CELLS
[2020-05-21 00:26] LABS: MICROCYTOSIS MODERATE
[2020-05-21 00:27] LABS: STOMATOCYTE FEW
[2020-05-21 00:28] LABS: TROPONIN I < 0.015 ng/ml (<0.045)
--- NOTE | 2020-05-21 00:41 | NUR ---
TALKED WITH PT KAREN AND LET HIM KNOW THAT PT WILL BE ADMITTED. INFORMED HIM THAT IF THERE IS ANY CHANGE THAT HE WOULD RECEIVE A CALL AT THAT TIME.
[2020-05-21 01:00] LABS: BILIRUBIN Negative (Negative); BLOOD Negative (Negative); CLARITY Clear (Clear); COLOR Yellow (Yellow); GLUCOSE Negative (Negative); KETONE Negative (Negative); LEUKO ESTERASE 2+ (Negative); NITRITE Negative (Negative); PH 5.5 (4.5-8.0)
[2020-05-21 01:15] LABS: BACTERIA 2+; EPITHELIAL CELLS 21-30; RBC 0-2 rbc/hpf (0-2)
--- NOTE | 2020-05-21 01:34 | NUR ---
NON DESTRUCTIVE EVALUATION TECHNICIAN SENT FOR PRBC AT THIS TIME. VSS.
--- NOTE | 2020-05-21 03:06 | NUR ---
PT TO BEDSIDE COMMODE AT THIS TIME. PT DENIES ANY OTHER NEEDS AT THIS TIME.
--- NOTE | 2020-05-21 03:28 | NUR ---
PT RESTING ON COT AT THIS TIME. VSS. PT STATES SHE FEELS LIKE HER HEART IS "RACING OFF AND ON". HEART MONITOR SHOWS NSR. WILL CONTINUE TO MONITOR.
--- NOTE | 2020-05-21 05:19 | NUR ---
PT C/O CHEST PAIN. EKG SHOWS NSR. EKG GIVEN TO DR. DOOLEY AT THIS TIME. PT DESCRIBES PAIN EPIGASTRIC PAIN. WILL CONTINUE TO MONITOR.
--- NOTE | 2020-05-21 05:56 | NUR ---
PT ON COT. NO DISTRESS NOTED. CALL LIGHT WITH IN REACH. WILL CONTINUE TO MONITOR.
--- NOTE | 2020-05-21 06:37 | NUR ---
PT NO LONGER COMPLAINING OF EPIGASTRIC PAIN. SELF POSITIONING FOR COMFORT AT THIS TIME. VSS. WILL CONTINUE TO MONITOR.
--- NOTE | 2020-05-21 07:23 | NUR ---
REPORT RECIEVED FROM YANETH MCKINLEY
--- NOTE | 2020-05-21 07:24 | NUR ---
PT AWAKE RESTING IN BED IN LOW FOWLERS BED IN LOWEST POSITION CALL LIGHT IN REACH PT WITH NO REQUESTS AT THIS TIME
[2020-05-21 09:35] LABS: BASO % 0.5 % (0.0-1.0); HEMATOCRIT 27.7 % (37.0-47.0); LYMPH % 12.6 % (27.0-41.0); MEAN CELL VOLUME 68.4 fl (81.0-99.0); MEAN CORPUSCULAR HGB CONC 26.4 g/dl (33.0-37.0); MEAN PLATELET VOLUME 9.6 fl (9.6-12.3); MONO % 0.5 % (3.0-9.0); NEUT % 84.8 % (47.0-73.0); NUCLEATED RED BLOOD CELL 0.2 % (0.0-0.0); PLATELET COUNT AUTOMATED 307 10*3/uL (130-400); RED BLOOD COUNT 4.05 10*6/uL (4.10-5.10); RED CELL DISTRI WIDTH 20.1 % (0-14.5); WHITE BLOOD COUNT 8.3 10*3/uL (4.8-10.8)
--- NOTE | 2020-05-21 12:21 | NUR ---
SPOKE WITH DR KRAUS, RESIDENT WITH DR SOTO. HE STATED THAT HE WOULD INFORM DR SOTO OF CONSULT. THAT I DO NOT NEED TO CALL DR SOTO ALSO.
--- NOTE | 2020-05-21 13:00 | NUR ---
A 74, admitted to ICCU, under the services of MARY ANN Montana MD with a diagnosis of ANEMIA. Chief complaint is SHORTNESS OF BREATHE, LETHARGY. Patient arrived via ambulance from ER. Monitor applied. Initial assessment completed. Vital signs taken and recorded. MARY ANN MONTANA MD notified of admission to the unit. Orders received. See assessment for past medical history, medications and allergies. Patient and/or family oriented to unit. [facility] visitation policy reviewed. Clothing/patient valuable form completed. AURORA HE
[2020-05-21] MEDS ORDERED: PERCOCET 10-321 EACH PO (13:32)
--- NOTE | 2020-05-21 15:09 | NUR ---
MEDICATED PT PER PRN ORDER WITH DILAUDID 0.25MG FOR C/O PAIN TO HIPS,HEAD, AND BACK THAT RATES 9/10 ON PAIN SCALE.
--- NOTE | 2020-05-21 15:40 | NUR ---
PT STATES "LITTLE" RELIEF OF PAIN WITH EARLIER DILAUDID.
--- NOTE | 2020-05-21 20:40 | NUR ---
DR SOTO HERE TO SEE PT.
--- NOTE | 2020-05-21 20:54 | NUR ---
DILAUDID AT 2053 FOR CRYING WITH CHRONIC PAIN IN HIPS, BACK AND HEAD.
--- NOTE | 2020-05-21 21:10 | NUR ---
MINIMAL RELIEF OF PAIN.
--- NOTE | 2020-05-21 21:34 | NUR ---
MARIA GUADALUPE PER PT REQUEST FOR SLEEP. STATES HASN'T SLEPT FOR TWO NIGHTS.
--- NOTE | 2020-05-21 21:57 | NUR ---
DR OSTO CALLS AND ORDERS NPO WITH EGD IN AM.
--- NOTE | 2020-05-21 22:15 | NUR ---
PT BEING BATHED BY PA WITH HIBICLENS AND LINENS CHANGED FOR SURGERY TOMORROW.
--- NOTE | 2020-05-21 22:36 | NUR ---
APPEARS AMBIEN EFFECTIVE...PT NOW STARTING TO DOZE. CALL LIGHT IN REACH.
[2020-05-22] VITALS (15 sets, daily range): BP systolic 140–168; BP diastolic 38–91
--- NOTE | 2020-05-22 00:06 | NUR ---
PT PULLED MONITOR OFF, IV'S OUT, AND AMBULATING IN ROOM AND STARTING OUT OF ROOM. PT DISORIENTED AT THIS TIME, WEEPY, ARGUMENTATIVE, BUT KNOWS WHERE SHE IS AND ASKS "HOW ARE THE OTHER PATIENTS BACK HERE?" SHE WAS ASSISTED TO BSC AND BACK TO BED TO POSITION OF COMFORT. PLAN OF CARE, AGAIN, DISCUSSED WITH PT. BED EXIT ON AND IN VIEW OF MYSELF.
--- NOTE | 2020-05-22 00:13 | NUR ---
BED EXIT ALARM RINGS AGAIN, PT GETTING UP. UPON ASKING WHAT I COULD GET FOR HER, SHE WEPT, "I KNOW I'M IN THE HOSPITAL. I JUST DON'T KNOW WHAT TO DO." AGAIN, ASSISTED BACK TO BED TO POSITION OF COMFORT, PT CHUCKLING I AM DOING THIS. BED EXIT ALARM ON.
--- NOTE | 2020-05-22 00:35 | NUR ---
BED EXIT ALARM. PT GETTING OOB. DENIES WANTING ANYTHING. RETURNED TO BED AND POSITION OF COMFORT.
--- NOTE | 2020-05-22 01:01 | NUR ---
PT CONTINUING TO CLIMB OOB AND PULL MONITOR LEADS OFF. PT MOVED TO ICU 10. SHE REMAINS ARGUMENTATIVE, DISORIENTED BUT CONTINUES TO SAY SHE IS IN THE HOSPITAL & ASKS HOW OTHER PTS ARE, AND HAS PERIODS OF LAUGHING & SMALL PERIODS OF [id number]. OTHER TIMES SHE IS WEEPY. EMOTIONAL SUPPORT AND EXPLANATIONS ONGOING.
--- NOTE | 2020-05-22 01:22 | NUR ---
PT RESTS QUIETLY WITH EYES CLOSED FOR A FEW MINUTES THEN JUMPS UP AND STARTS TO CLIMB OOB. ASSISTED UP TO BSC TO VOID SM AMT URINE AND RETURNED TO BED. I AM SITTING AT PT'S BEDSIDE.
--- NOTE | 2020-05-22 01:37 | NUR ---
PT CRYING, STANDING AT SIDE OF BED. "I JUST WANNA GO HOME." ASSISTED PT TO RECLINER CHAIR AND POSITION OF COMFORT. AGAIN, THIS RN IS SITTING NEXT TO PT. PT AGAIN, ASKS WHERE THE OTHER PT'S ARE AT AND HOW THEY ARE DOING.
--- NOTE | 2020-05-22 02:21 | NUR ---
PT BACK TO BED AND ASSISTED TO ATTEMPTED POSITION OF COMFORT.
--- NOTE | 2020-05-22 02:36 | NUR ---
PT RESTLESS AND GETTING OOB. BACK UP TO RECLINER CHAIR. SHE CONTINUES TO KNOW SHE'S IN HOSPITAL BUT SPEAKS OF CHILDREN "PUTTING STUFF ON HER". SHE DISCUSSES, WITH MEMBER OF STAFF, DETAILED ACCURATE DESCRIPTION OF WHERE SHE LIVES WELL THAT SHE TAKES HER "PERC 10'S EVERY 6 HOURS AT HOME." SHE WILL BE CALM, THEN WEEPY, THEN DOCILE, THEN TEAR HER MONITOR LEADS OFF AND YELL "I'M GOING HOME!" AND BALLING UP HER FISTS AT US.
--- NOTE | 2020-05-22 02:51 | NUR ---
UP TO BSC, WEEPY, ARGUMENTATIVE AND SWEARING AT STAFF.
--- NOTE | 2020-05-22 02:54 | NUR ---
ASSISTED BACK TO BED. ADDITIONAL PILLOWS TO PROMOTE COMFORT. THIS RN IS SITTING NEXT TO PT'S BED.
--- NOTE | 2020-05-22 03:12 | NUR ---
PT ARGUMENTATIVE....BACK UP IN CHAIR....WANTS TO GO TO THE LIVING ROOM...DECLINES BEING CONFUSED "PHILIP, THERE WERE KIDS HERE! DON'T TELL ME THERE WEREN'T. THEY DON'T DRESS LIKE THEY DID!"
--- NOTE | 2020-05-22 03:47 | NUR ---
UP TO CHAIR AGAIN.
--- NOTE | 2020-05-22 04:13 | NUR ---
UP, WEEPING, WANDERING AROUND HER BED. UPON ASKING WHY SHE'S CRYING, PT STATES "I DON'T KNOW! I JUST CAN'T SLEEP!". REDIRECTED BACK TO BED.
--- NOTE | 2020-05-22 04:50 | NUR ---
PT TRYING TO GET UP AND WALK OUT OF THE ICU. SHE IS YELLING "TAKE THIS THING OFF" REFERRING TO HOT BOX SPOTTER. REDIRECTED PT BACK TO RECLINER CHAIR.
--- NOTE | 2020-05-22 05:50 | NUR ---
DR FORBES NOTIFIED OF TONIGHT'S EVENTS: CRYING, REQUESTING SOMETHING FOR SLEEP, AMBIEN GIVEN ORDERED, CONFUSION, HALLUCINATIONS, AGITATION, PULLING OF IV SITES/NO IV SITE AT THIS TIME, AND PLAN FOR EGD THIS AFTERNOON WITH DR SOTO. ORDER RECEIVED.
[2020-05-22 06:27] LABS: HEMATOCRIT 25.9 % (37.0-47.0); MEAN CELL VOLUME 68.5 fl (81.0-99.0); MEAN CORPUSCULAR HGB CONC 26.3 g/dl (33.0-37.0); NUCLEATED RED BLOOD CELL 0.2 % (0.0-0.0); PLATELET COUNT AUTOMATED 324 10*3/uL (130-400); RED BLOOD COUNT 3.78 10*6/uL (4.10-5.10); RED CELL DISTRI WIDTH 20.4 % (0-14.5); WHITE BLOOD COUNT 11.5 10*3/uL (4.8-10.8)
[2020-05-22 06:49] LABS: ALBUMIN 3.2 gm/dl (3.1-4.5); ALKALINE PHOSPHATASE 66 U/L (45-117); BUN 15 mg/dl (7-24); CHLORIDE 103 mmol/L (98-107); CREATININE 0.71 mg/dL (0.55-1.02); POTASSIUM 3.4 mmol/L (3.5-5.1); SGOT/AST 16 IU/L (3-35); SGPT/ALT 12 U/L (12-78); SODIUM 141 mmol/L (136-145); TOTAL PROTEIN 7.7 gm/dL (6.4-8.2)
[2020-05-22 07:07] LABS: MICROCYTOSIS MODERATE; PLATELET SUFFICIENCY NORMAL (NORMAL); POLYCHROMASIA SLIGHT; SPHEROCYTES FEW; TOTAL CELLS COUNTED 100 #CELLS
[2020-05-22] MEDS ORDERED: CLOPIDOGREL75 MG PO (07:24)
--- NOTE | 2020-05-22 07:30 | NUR ---
Shift chart check completed.24 HR chart check completed. Patient is in recliner chair in constant view of staff. No distress. Remains NPO for EGD later today.
--- NOTE | 2020-05-22 07:44 | NUR ---
PT HAS CRAWLED INTO BED.
--- NOTE | 2020-05-22 08:20 | NUR ---
DILAUDID 0.25MG IV FOR PAIN IN BACK AND HIPS.
--- NOTE | 2020-05-22 08:31 | NUR ---
DR FORBES HAS VISITED. NEW IV SITE OBTAINED BY GILL MONTOYA, AFTER TWO UNSUCCESSFUL (UNCOOPERATIVE) ATTEMPTS BY MYSELF. PT NOW OUT OF BED TO RECLINER CHAIR, TALKING COHERENTLY TO HER .
--- NOTE | 2020-05-22 08:41 | NUR ---
POTASSIUM SUPPLEMENTED PER ORDER. PT UPDATED ON PLAN FOR TRANSUFION OF ONE UNIT TODAY AND EGD.
--- NOTE | 2020-05-22 08:50 | NUR ---
DOZING IN CHAIR SINCE EARLIER MELISSA.
--- NOTE | 2020-05-22 09:00 | NUR ---
Financial Institution Vice President in to talk to patient. Patient states lives at home with her . There are 0 steps in the home. Physician: Dr. Len Guillen Pharmacy: [facility] Home health services: has home health but is unsure of the company name Patient's level of ADLs: MINIMAL ASSIST Patient has working utilities: yes DME: cane, walker, wheelchair, O2 prn, portable O2 tanks, nebulizer, O2 supplier unknown Follow-up physician's appointment after d/c: she prefers to make her own follow up appt after discharge Does patient want to access PORTAL?: no Discharge plan discussed with patient. She is sitting up in a recliner. She lives at home with her . She is normally independent in her ADLs and ambulates with a cane. Discussed short term SNF and she refuses. Discussed home health care services and she currently has but is unsure of the name of the company. Reached out to Jeaneth at [facility] as she has had them in the past but Jeaneth states she is not current with them now. When medically stable she will be discharged to home with the resumption of her home health care. Her will provide transportation on discharge. LUNA MCNAMARA
--- NOTE | 2020-05-22 11:30 | NUR ---
Patient identified by arm band. Vital signs recorded. Blood unit number verified by 2 R.N.'s. I.V. site satisfactory. Unit #2 started at a KVO rate with Normal Saline. ZAHIDA SMITH L
--- NOTE | 2020-05-22 12:19 | NUR ---
TRANSFUSION WITHOUT SIGNS OF REACTION. INFUSING AT 125/HR. TRANSFERRED IN STABLE CONDITION VIA RECLINER CHAIR TO [facility]. REMAINS NPO FOR EGD THIS AFTERNOON. ATTEMPTED TO CALL DR SOTO TO UPDATE HIM ON PT'S LABS/STATUS, BUT HE NEVER RETURNED CALL.
--- NOTE | 2020-05-22 12:20 | NUR ---
REPORT TO RENEA ON 4E.
--- NOTE | 2020-05-22 12:31 | NUR ---
Spoke to , Korey, regarding home health care services and O2 supplier. He states she has "those hospice services." Reached out to Hosea at [facility] to see if patient has services with them currently. Awaiting response.
--- NOTE | 2020-05-22 12:34 | NUR ---
Spoke to Hosea at [facility] and patient is current with them.
--- NOTE | 2020-05-22 13:20 | NUR ---
Received call from Hosea at [facility]. Per his director patient could be inpatient hospice with [facility] with receiving blood. Patient was full inpatient hospice at home. Notified Dr. Bowers.
--- NOTE | 2020-05-22 14:10 | NUR ---
BLOOD TRANSFUSION COMPLETE - PT TOLERATED WELL.
--- NOTE | 2020-05-22 14:35 | NUR ---
PT TAKEN TO SURGERY AT THIS TIME.
--- NOTE | 2020-05-22 22:37 | NUR ---
DILAUDID GIVEN PER ORDER FOR HIP AND BACK PAIN RAED "9". SEE MAR
--- NOTE | 2020-05-22 23:30 | NUR ---
DILAUDID EFFECTIVE FOR PAIN PER PT.
[2020-05-23] VITALS: BP 156/57
--- NOTE | 2020-05-23 00:05 | NUR ---
CALLED DR. FORBES AND ORDER RECEIVED FOR SOMETHING TO HELP PATIENT SLEEP.
--- NOTE | 2020-05-23 05:07 | NUR ---
24 HR chart check completed.
[2020-05-23 08:00] VITALS: BP 161/47
--- NOTE | 2020-05-23 08:04 | NUR ---
PATIENT MEDICATED WITH IV DILAUDID AT THIS TIME FOR COMPLAINTS OF 9/10 HIP AND BACK PAIN. WILL MONITOR FOR EFFECTIVENESS.
[2020-05-23 08:44] LABS: BASO # 0.1 10*3/uL (0.0-0.1); BASO % 0.9 % (0.0-1.0); EOS # 0.2 10*3/uL (0.0-0.4); EOS % 2.2 % (1.0-4.0); HEMATOCRIT 28.6 % (37.0-47.0); LYMPH # 1.9 10*3/uL (1.3-4.4); LYMPH % 20.8 % (27.0-41.0); MEAN CELL VOLUME 70.8 fl (81.0-99.0); MEAN CORPUSCULAR HGB 18.6 pg (27.0-31.0); MEAN CORPUSCULAR HGB CONC 26.2 g/dl (33.0-37.0); MEAN PLATELET VOLUME 9.9 fl (9.6-12.3); MONO # 0.9 10*3/uL (0.1-1.0); MONO % 9.7 % (3.0-9.0); NEUT % 65.9 % (47.0-73.0); PLATELET COUNT AUTOMATED 301 10*3/uL (130-400); RED BLOOD COUNT 4.04 10*6/uL (4.10-5.10); RED CELL DISTRI WIDTH 21.4 % (0-14.5); WHITE BLOOD COUNT 9.1 10*3/uL (4.8-10.8)
--- NOTE | 2020-05-23 09:00 | NUR ---
CM in to see patient. She is sitting up in his bedside recliner. She states she must have went crazy the other night after she took Ambien. She said she has taken Ambien before without any problems. Explained you can have a different reaction to medications depending on you. She verbalized an understanding. Discussed her having [facility] services at home. She would like to continue those services at home as they provide her with a nurse once a week, her O2, and anything she needs. When medically stable she will be discharged to home with the resumption of her [facility].
--- NOTE | 2020-05-23 09:04 | NUR ---
PER PATIENT, PRN MEDICATION HAS BEEN EFFECTIVE. DENIES ANY FURTHER NEEDS AT THIS TIME. CALL LIGHT IS WITHIN REACH.
[2020-05-23 12:00] VITALS: BP 152/45
--- NOTE | 2020-05-23 14:21 | NUR ---
PT MEDICATED WITH IV DILAUDID AT THIS TIME FOR COMPLAINTS OF 7/10 PAIN IN BACK AND LEGS. WILL MONITOR FOR EFFECTIVENESS.
[2020-05-23 16:00] VITALS: BP 130/90
[2020-05-23 20:00] VITALS: BP 170/59
--- NOTE | 2020-05-23 21:49 | NUR ---
PT C/O 10/10 PAIN GENERALIZED JOINT PAIN. PT IS CRYING. PT PROVIDED W/ PRN PAIN MEDICATION. WILL REASSESS.
--- NOTE | 2020-05-23 22:40 | NUR ---
PT SEEN AND ASSESSED. PT REPORT PAIN MEDICATION WAS EFFECTIVE AND HER PAIN IS NOW 4/10- GENERALIZED. PT REPORTS NO OTHER CONCERNS AT THIS TIME. EDUCATION PROVIDED REGARDING COLONOSCOPY TOMORROW AND MEDICATIONS. PT VERBALIZES HER UNDERSTANDING OF THIS EDUCATION.
[2020-05-24] VITALS (8 sets, daily range): BP systolic 148–190; BP diastolic 54–656
--- NOTE | 2020-05-24 04:32 | NUR ---
PT ASSISTED TO BATHROOM. PT REPORTS CLEAR LIQUID STOOL WITHOUT SEDIMENT. EDUCATED PT SHE WOULD BE GOIGNT TO COLONOSCOPY TODAY FOR FURTHER EVAL.
--- NOTE | 2020-05-24 05:12 | NUR ---
24 HR chart check completed.
[2020-05-24 07:33] LABS: BASO # 0.1 10*3/uL (0.0-0.1); EOS # 0.2 10*3/uL (0.0-0.4); EOS % 2.1 % (1.0-4.0); HEMATOCRIT 28.9 % (37.0-47.0); LYMPH # 1.6 10*3/uL (1.3-4.4); LYMPH % 16.3 % (27.0-41.0); MEAN CELL VOLUME 72.4 fl (81.0-99.0); MEAN CORPUSCULAR HGB CONC 26.3 g/dl (33.0-37.0); MEAN PLATELET VOLUME 9.5 fl (9.6-12.3); MONO # 0.7 10*3/uL (0.1-1.0); NEUT % 73.2 % (47.0-73.0); PLATELET COUNT AUTOMATED 264 10*3/uL (130-400); RED BLOOD COUNT 3.99 10*6/uL (4.10-5.10); WHITE BLOOD COUNT 9.6 10*3/uL (4.8-10.8)
[2020-05-24 07:43] LABS: BUN 7 mg/dl (7-24); CHLORIDE 107 mmol/L (98-107); POTASSIUM 3.4 mmol/L (3.5-5.1); SODIUM 140 mmol/L (136-145)
--- NOTE | 2020-05-24 09:00 | NUR ---
CM in to see patient. No new needs or request at this time. When medically stable she will be discharged to home. She wants to continue with her [facility] at home.
--- NOTE | 2020-05-24 11:54 | NUR ---
Medicated with dilaudid iv per prn order for complaints of pain all over.
--- NOTE | 2020-05-24 12:45 | NUR ---
States that dilaudid effective.
--- NOTE | 2020-05-24 18:14 | NUR ---
Pt remains in surgery.
--- NOTE | 2020-05-24 19:30 | NUR ---
REPORT CALLED FROM OR. PT TO RETURN TO UNIT IN 15-20 MINUTES
--- NOTE | 2020-05-24 21:10 | NUR ---
PT SEEN AND ASSESSED. PT C/O GENERALIZED PAIN 10/10 AND REQUEST PRN PAIN MEDICATION.
[2020-05-25] VITALS: BP 150/42
[2020-05-25] MEDS ORDERED: KLOR-CON M2020 ME1 PO (07:18)
[2020-05-25] MEDS ORDERED: Carafate1 GM PO (07:18)
[2020-05-25] MEDS ORDERED: OMEPRAZOLE MAGN20 MG PO (07:18)
[2020-05-25] MEDS ORDERED: FERROUS SULFAT324 M2 PO (07:18)
[2020-05-25 07:24] LABS: BASO # 0.1 10*3/uL (0.0-0.1); BASO % 0.9 % (0.0-1.0); EOS # 0.2 10*3/uL (0.0-0.4); EOS % 2.5 % (1.0-4.0); HEMATOCRIT 29.7 % (37.0-47.0); LYMPH # 1.9 10*3/uL (1.3-4.4); LYMPH % 19.8 % (27.0-41.0); MEAN CELL VOLUME 72.3 fl (81.0-99.0); MEAN CORPUSCULAR HGB 19.2 pg (27.0-31.0); MEAN CORPUSCULAR HGB CONC 26.6 g/dl (33.0-37.0); MEAN PLATELET VOLUME 9.6 fl (9.6-12.3); MONO # 0.9 10*3/uL (0.1-1.0); MONO % 9.1 % (3.0-9.0); NEUT # 6.3 10*3/uL (2.3-7.9); NEUT % 67.2 % (47.0-73.0); PLATELET COUNT AUTOMATED 264 10*3/uL (130-400); RED BLOOD COUNT 4.11 10*6/uL (4.10-5.10); RED CELL DISTRI WIDTH 22.9 % (0-14.5); WHITE BLOOD COUNT 9.3 10*3/uL (4.8-10.8)
[2020-05-25 07:39] LABS: BUN 5 mg/dl (7-24); CHLORIDE 108 mmol/L (98-107); CREATININE 0.65 mg/dL (0.55-1.02); POTASSIUM 3.2 mmol/L (3.5-5.1); SODIUM 143 mmol/L (136-145)
[2020-05-25 08:00] VITALS: BP 147/43
--- NOTE | 2020-05-25 08:08 | NUR ---
, PT OK FOR DISCHARGE TODAY. 40 KDUR NOW FOR K OF 3.2
--- NOTE | 2020-05-25 10:26 | NUR ---
Discharge instructions reviewed with patient/family. Patient receptive and verbalizes understanding. Follow-up care arranged. Written instructions given to patient/family. CLARISSA MENDEZ
== END 2020-05-25 10:26 | disposition hospice, home (50) | DRG 811 ==
LOC: ED 23:10 → EDHOLD 05-21 01:38 → 4E 05-21 01:38 → EDHOLD 05-21 01:38 → ICCU 05-21 01:38 → EDHOLD 05-21 09:03 → ICCU 05-21 12:08 → 4E 05-22 11:08
PROVIDERS: Physician Assistant; ADMIT Internal Medicine; ATTEND Internal Medicine
PROC: 30233N1 Transfusion of Nonautologous Red Blood Cells into Peripheral Vein, Percutaneous Approach (ICD-10-PCS; 2020-05-21)
PROC: 0DB78ZX Excision of Stomach, Pylorus, Via Natural or Artificial Opening Endoscopic, Diagnostic (ICD-10-PCS; 2020-05-22)
PROC: 0DBL8ZZ Excision of Transverse Colon, Via Natural or Artificial Opening Endoscopic (ICD-10-PCS; principal; 2020-05-24)
DX: D50.9 Iron deficiency anemia, unspecified (principal); G93.41 Metabolic encephalopathy; F33.1 Major depressive disorder, recurrent, moderate; J44.9 Chronic obstructive pulmonary disease, unspecified; K29.70 Gastritis, unspecified, without bleeding; I10 Essential (primary) hypertension; K44.9 Diaphragmatic hernia without obstruction or gangrene; E87.6 Hypokalemia; Z66 Do not resuscitate; F41.1 Generalized anxiety disorder; Z51.5 Encounter for palliative care; G89.29 Other chronic pain; M54.5 Low back pain; I73.9 Peripheral vascular disease, unspecified; E03.9 Hypothyroidism, unspecified; E66.01 Morbid (severe) obesity due to excess calories; G57.11 Meralgia paresthetica, right lower limb; D12.3 Benign neoplasm of transverse colon; D69.1 Qualitative platelet defects; M47.9 Spondylosis, unspecified; I87.2 Venous insufficiency (chronic) (peripheral); Z98.84 Bariatric surgery status; Z98.51 Tubal ligation status; Z98.891 History of uterine scar from previous surgery; Z82.49 Family history of ischemic heart disease and other diseases of the circulatory system; Z83.3 Family history of diabetes mellitus; Z88.0 Allergy status to penicillin; Z88.8 Allergy status to other drugs, medicaments and biological substances; Z88.2 Allergy status to sulfonamides; Z88.6 Allergy status to analgesic agent; Z90.710 Acquired absence of both cervix and uterus; Z68.33 Body mass index [BMI] 33.0-33.9, adult

== ENCOUNTER 2020-07-13 07:28 | Emergency (ER) | payer OTHER ==
[~2020-07-13] VITALS: Wt 108.9 kg
[~2020-07-13 07:28] MED LIST changes: +CLOPIDOGREL75 MG PO; +Carafate1 GM PO; +FERROUS SULFAT324 M2 PO; +PERCOCET 10-321 EACH PO
[2020-07-13 08:13] LABS: BASO # 0.1 10*3/uL (0.0-0.1); BASO % 0.8 % (0.0-1.0); EOS # 0.3 10*3/uL (0.0-0.4); EOS % 2.5 % (1.0-4.0); HEMATOCRIT 35.4 % (37.0-47.0); MEAN CELL VOLUME 84.5 fl (81.0-99.0); MEAN CORPUSCULAR HGB 24.8 pg (27.0-31.0); MEAN CORPUSCULAR HGB CONC 29.4 g/dl (33.0-37.0); MEAN PLATELET VOLUME 9.6 fl (9.6-12.3); MONO # 0.6 10*3/uL (0.1-1.0); MONO % 5.6 % (3.0-9.0); NEUT % 70.9 % (47.0-73.0); PLATELET COUNT AUTOMATED 248 10*3/uL (130-400); RED BLOOD COUNT 4.19 10*6/uL (4.10-5.10); RED CELL DISTRI WIDTH 21.9 % (0-14.5); WHITE BLOOD COUNT 9.9 10*3/uL (4.8-10.8)
[2020-07-13 08:24] LABS: ACT PARTIAL THROMBO TIME 24.3 SECONDS (20.0-32.1)
[2020-07-13 08:28] LABS: ALBUMIN 3.1 gm/dl (3.1-4.5); ALKALINE PHOSPHATASE 85 U/L (45-117); BUN 19 mg/dl (7-24); CHLORIDE 104 mmol/L (98-107); CREATININE 0.79 mg/dL (0.55-1.02); LIPASE 205 U/L (73-393); POTASSIUM 4.1 mmol/L (3.5-5.1); SGOT/AST 19 IU/L (3-35); SGPT/ALT 21 U/L (12-78); SODIUM 140 mmol/L (136-145); TOTAL PROTEIN 7.6 gm/dL (6.4-8.2)
[2020-07-13 09:15] LABS: BILIRUBIN Negative (Negative); BLOOD Negative (Negative); CLARITY Cloudy (Clear); COLOR Yellow (Yellow); GLUCOSE Negative (Negative); KETONE Negative (Negative); LEUKO ESTERASE 3+ (Negative); NITRITE Negative (Negative); SPECIFIC GRAVITY 1.025 (1.001-1.030)
[2020-07-13 09:31] LABS: BACTERIA 3+; WBC TNTC wbc/hpf (0-5)
[2020-07-13] MEDS ORDERED: CIPRO500 MG PO (10:30)
== END 2020-07-13 10:34 | disposition home or self-care (01) ==
LOC: ED 07:28
PROVIDERS: Emergency Medicine
DX: N39.0 Urinary tract infection, site not specified (principal); E66.9 Obesity, unspecified; I73.9 Peripheral vascular disease, unspecified; J44.9 Chronic obstructive pulmonary disease, unspecified; E78.5 Hyperlipidemia, unspecified; E03.9 Hypothyroidism, unspecified; I11.0 Hypertensive heart disease with heart failure; I50.9 Heart failure, unspecified; M19.90 Unspecified osteoarthritis, unspecified site; E78.00 Pure hypercholesterolemia, unspecified; Z88.2 Allergy status to sulfonamides; Z79.899 Other long term (current) drug therapy; Z90.710 Acquired absence of both cervix and uterus; Z90.89 Acquired absence of other organs; Z87.891 Personal history of nicotine dependence

== ENCOUNTER 2021-04-10 12:03 | Emergency (ER) | payer MEDICARE, OTHER ==
[~2021-04-10] VITALS: Ht 167.6 cm; Wt 72.6 kg
== END 2021-04-10 16:58 | disposition left against medical advice (07) ==
LOC: ED 12:03
DX: R53.1 Weakness (principal); M79.10 Myalgia, unspecified site; Z53.21 Procedure and treatment not carried out due to patient leaving prior to being seen by health care provider

== ENCOUNTER 2021-04-18 07:03 | Inpatient (IN) | payer OTHER ==
[~2021-04-18] VITALS: Ht 168 cm; Wt 87.0 kg
[2021-04-18] VITALS (7 sets, daily range): BP systolic 123–158; BP diastolic 69–96
[2021-04-18 07:31] LABS: BASO # 0.1 10*3/uL (0.0-0.1); BASO % 0.7 % (0.0-1.0); EOS # 0.2 10*3/uL (0.0-0.4); EOS % 1.8 % (1.0-4.0); HEMATOCRIT 39.5 % (37.0-47.0); LYMPH # 1.2 10*3/uL (1.3-4.4); LYMPH % 9.2 % (27.0-41.0); MEAN CELL VOLUME 88.2 fl (81.0-99.0); MEAN CORPUSCULAR HGB 28.1 pg (27.0-31.0); MEAN CORPUSCULAR HGB CONC 31.9 g/dl (33.0-37.0); MONO % 7.5 % (3.0-9.0); NEUT # 10.5 10*3/uL (2.3-7.9); PLATELET COUNT AUTOMATED 341 10*3/uL (130-400); RED BLOOD COUNT 4.48 10*6/uL (4.10-5.10); RED CELL DISTRI WIDTH 13.8 % (0-14.5); WHITE BLOOD COUNT 13.1 10*3/uL (4.8-10.8)
[2021-04-18 07:43] LABS: ACT PARTIAL THROMBO TIME 25.4 SECONDS (20.0-32.1); INTERNATIONAL NORM RATIO 1.1 (2.0-3.5)
[2021-04-18 07:46] LABS: CREATININE 1.43 mg/dL (0.55-1.02); POTASSIUM 3.6 mmol/L (3.5-5.1)
[2021-04-18 11:06] LABS: BILIRUBIN Negative (Negative); BLOOD Trace-Intact (Negative); CLARITY Clear (Clear); COLOR Dark Yellow (Yellow); GLUCOSE Negative (Negative); KETONE Negative (Negative); LEUKO ESTERASE 2+ (Negative); NITRITE Negative (Negative); SPECIFIC GRAVITY 1.015 (1.001-1.030)
[2021-04-18 11:30] LABS: BACTERIA 2+; EPITHELIAL CELLS 16-20; WBC TNTC wbc/hpf (0-5)
[2021-04-19 06:10] LABS: ALBUMIN 2.6 gm/dl (3.1-4.5); ALKALINE PHOSPHATASE 87 U/L (45-117); BUN 64 mg/dl (7-24); CHLORIDE 109 mmol/L (98-107); CREATININE 1.03 mg/dL (0.55-1.02); LDH 253 U/L (84-246); POTASSIUM 3.7 mmol/L (3.5-5.1); SGOT/AST 31 IU/L (3-35); SGPT/ALT 19 U/L (12-78); SODIUM 141 mmol/L (136-145); TOTAL PROTEIN 8.4 gm/dL (6.4-8.2)
[2021-04-19 06:26] LABS: BASO % 0.2 % (0.0-1.0); HEMATOCRIT 36.3 % (37.0-47.0); LYMPH # 1.2 10*3/uL (1.3-4.4); LYMPH % 6.6 % (27.0-41.0); MEAN CELL VOLUME 90.1 fl (81.0-99.0); MEAN CORPUSCULAR HGB 29.3 pg (27.0-31.0); MEAN CORPUSCULAR HGB CONC 32.5 g/dl (33.0-37.0); MEAN PLATELET VOLUME 10.8 fl (9.6-12.3); MONO # 0.7 10*3/uL (0.1-1.0); MONO % 3.9 % (3.0-9.0); NEUT # 15.3 10*3/uL (2.3-7.9); NEUT % 88.2 % (47.0-73.0); PLATELET COUNT AUTOMATED 392 10*3/uL (130-400); RED BLOOD COUNT 4.03 10*6/uL (4.10-5.10); WHITE BLOOD COUNT 17.3 10*3/uL (4.8-10.8)
[2021-04-19 20:22] VITALS: BP 157/96
[2021-04-19 22:40] VITALS: BP 160/75
[2021-04-19 23:00] VITALS: BP 160/75
[2021-04-20 07:44] LABS: BASO % 0.2 % (0.0-1.0); HEMATOCRIT 37.5 % (37.0-47.0); LYMPH # 1.3 10*3/uL (1.3-4.4); LYMPH % 7.3 % (27.0-41.0); MEAN CELL VOLUME 91.2 fl (81.0-99.0); MEAN CORPUSCULAR HGB CONC 30.7 g/dl (33.0-37.0); MEAN PLATELET VOLUME 10.7 fl (9.6-12.3); MONO # 1.1 10*3/uL (0.1-1.0); NEUT # 15.4 10*3/uL (2.3-7.9); PLATELET COUNT AUTOMATED 448 10*3/uL (130-400); RED BLOOD COUNT 4.11 10*6/uL (4.10-5.10); WHITE BLOOD COUNT 18.2 10*3/uL (4.8-10.8)
[2021-04-20 08:00] VITALS: BP 151/74
[2021-04-20 08:00] LABS: ALBUMIN 2.6 gm/dl (3.1-4.5); BUN 62 mg/dl (7-24); CHLORIDE 109 mmol/L (98-107); LDH 257 U/L (84-246); POTASSIUM 4.2 mmol/L (3.5-5.1); SGOT/AST 27 IU/L (3-35); SODIUM 140 mmol/L (136-145); TOTAL PROTEIN 7.7 gm/dL (6.4-8.2)
[2021-04-20 08:01] LABS: ALKALINE PHOSPHATASE 85 U/L (45-117); CREATININE 0.96 mg/dL (0.55-1.02); SGPT/ALT 16 U/L (12-78)
[2021-04-20 12:00] VITALS: BP 170/70
[2021-04-20 16:00] VITALS: BP 173/61
[2021-04-20 20:00] VITALS: BP 188/78
[2021-04-21 06:36] LABS: BASO % 0.2 % (0.0-1.0); EOS % 0.1 % (1.0-4.0); HEMATOCRIT 36.4 % (37.0-47.0); LYMPH # 1.6 10*3/uL (1.3-4.4); LYMPH % 13.6 % (27.0-41.0); MEAN CELL VOLUME 90.8 fl (81.0-99.0); MEAN CORPUSCULAR HGB 28.2 pg (27.0-31.0); MEAN PLATELET VOLUME 10.4 fl (9.6-12.3); MONO # 1.2 10*3/uL (0.1-1.0); NEUT # 8.6 10*3/uL (2.3-7.9); NEUT % 74.7 % (47.0-73.0); PLATELET COUNT AUTOMATED 403 10*3/uL (130-400); RED BLOOD COUNT 4.01 10*6/uL (4.10-5.10); RED CELL DISTRI WIDTH 14.1 % (0-14.5); WHITE BLOOD COUNT 11.5 10*3/uL (4.8-10.8)
[2021-04-21 06:57] LABS: ALBUMIN 2.6 gm/dl (3.1-4.5); ALKALINE PHOSPHATASE 78 U/L (45-117); CHLORIDE 113 mmol/L (98-107); CREATININE 0.75 mg/dL (0.55-1.02); LDH 330 U/L (84-246); POTASSIUM 3.7 mmol/L (3.5-5.1); SGOT/AST 27 IU/L (3-35); SGPT/ALT 15 U/L (12-78); SODIUM 143 mmol/L (136-145); TOTAL PROTEIN 7.3 gm/dL (6.4-8.2)
[2021-04-21 07:37] LABS: BUN 39 mg/dl (7-24)
[2021-04-21 20:00] VITALS: BP 184/84
[2021-04-22 06:58] LABS: BASO % 0.2 % (0.0-1.0); EOS # 0.1 10*3/uL (0.0-0.4); EOS % 1.3 % (1.0-4.0); LYMPH # 1.8 10*3/uL (1.3-4.4); LYMPH % 20.9 % (27.0-41.0); MEAN CELL VOLUME 90.2 fl (81.0-99.0); MEAN CORPUSCULAR HGB 28.3 pg (27.0-31.0); MEAN CORPUSCULAR HGB CONC 31.4 g/dl (33.0-37.0); MEAN PLATELET VOLUME 10.5 fl (9.6-12.3); MONO # 0.7 10*3/uL (0.1-1.0); MONO % 7.7 % (3.0-9.0); NEUT # 5.9 10*3/uL (2.3-7.9); NEUT % 67.8 % (47.0-73.0); PLATELET COUNT AUTOMATED 340 10*3/uL (130-400); RED BLOOD COUNT 3.99 10*6/uL (4.10-5.10); RED CELL DISTRI WIDTH 14.1 % (0-14.5); WHITE BLOOD COUNT 8.7 10*3/uL (4.8-10.8)
[2021-04-22 07:28] LABS: ALBUMIN 2.5 gm/dl (3.1-4.5); CHLORIDE 113 mmol/L (98-107); CREATININE 0.57 mg/dL (0.55-1.02); POTASSIUM 3.5 mmol/L (3.5-5.1); SGOT/AST 21 IU/L (3-35); SODIUM 144 mmol/L (136-145)
[2021-04-22 07:32] LABS: ALKALINE PHOSPHATASE 82 U/L (45-117); SGPT/ALT 18 U/L (12-78)
[2021-04-22 07:46] LABS: BUN 26 mg/dl (7-24)
[2021-04-22 08:00] VITALS: BP 157/84
[2021-04-22 12:00] VITALS: BP 132/72
[2021-04-22 16:00] VITALS: BP 124/73
[2021-04-22 20:00] VITALS: BP 171/70
[2021-04-23] VITALS: BP 182/61
[2021-04-23] MEDS ORDERED: BUMETANIDE1 MG PO (00:08)
[2021-04-23] MEDS ORDERED: SERTRALINE HYDR50 MG PO (00:10)
[2021-04-23] MEDS ORDERED: Ipratropium Brom3 ML INH (00:14)
[2021-04-23] MEDS ORDERED: LORAZEPAM2 MG PO ×2 (00:15→10:51)
[2021-04-23 07:06] LABS: BASO % 0.2 % (0.0-1.0); EOS # 0.1 10*3/uL (0.0-0.4); EOS % 0.9 % (1.0-4.0); HEMATOCRIT 36.2 % (37.0-47.0); LYMPH % 18.3 % (27.0-41.0); MEAN CELL VOLUME 92.3 fl (81.0-99.0); MEAN CORPUSCULAR HGB 28.3 pg (27.0-31.0); MEAN CORPUSCULAR HGB CONC 30.7 g/dl (33.0-37.0); MEAN PLATELET VOLUME 10.3 fl (9.6-12.3); MONO # 0.8 10*3/uL (0.1-1.0); MONO % 7.2 % (3.0-9.0); NEUT % 71.4 % (47.0-73.0); PLATELET COUNT AUTOMATED 354 10*3/uL (130-400); RED BLOOD COUNT 3.92 10*6/uL (4.10-5.10); RED CELL DISTRI WIDTH 14.4 % (0-14.5); WHITE BLOOD COUNT 11.1 10*3/uL (4.8-10.8)
[2021-04-23 07:30] LABS: CHLORIDE 110 mmol/L (98-107); POTASSIUM 3.9 mmol/L (3.5-5.1); SODIUM 142 mmol/L (136-145)
[2021-04-23 07:50] LABS: ALBUMIN 2.7 gm/dl (3.1-4.5); ALKALINE PHOSPHATASE 91 U/L (45-117); BUN 24 mg/dl (7-24); CREATININE 0.61 mg/dL (0.55-1.02); SGOT/AST 22 IU/L (3-35); SGPT/ALT 18 U/L (12-78); TOTAL PROTEIN 7.2 gm/dL (6.4-8.2)
[2021-04-23 08:00] VITALS: BP 160/68
[2021-04-23] MEDS ORDERED: PERCOCET 10-321 EACH PO (10:51)
[2021-04-23 12:00] VITALS: BP 157/69
[2021-04-23 16:00] VITALS: BP 167/60
[2021-04-23 20:00] VITALS: BP 161/84
[2021-04-24 07:22] LABS: BASO % 0.2 % (0.0-1.0); EOS # 0.1 10*3/uL (0.0-0.4); HEMATOCRIT 36.7 % (37.0-47.0); LYMPH # 2.4 10*3/uL (1.3-4.4); LYMPH % 20.9 % (27.0-41.0); MEAN CELL VOLUME 91.5 fl (81.0-99.0); MEAN CORPUSCULAR HGB 28.2 pg (27.0-31.0); MEAN CORPUSCULAR HGB CONC 30.8 g/dl (33.0-37.0); MEAN PLATELET VOLUME 10.2 fl (9.6-12.3); MONO # 0.7 10*3/uL (0.1-1.0); MONO % 6.4 % (3.0-9.0); NEUT # 7.9 10*3/uL (2.3-7.9); NEUT % 69.8 % (47.0-73.0); PLATELET COUNT AUTOMATED 348 10*3/uL (130-400); RED BLOOD COUNT 4.01 10*6/uL (4.10-5.10); RED CELL DISTRI WIDTH 14.5 % (0-14.5); WHITE BLOOD COUNT 11.3 10*3/uL (4.8-10.8)
[2021-04-24 07:53] LABS: ALBUMIN 2.7 gm/dl (3.1-4.5); BUN 23 mg/dl (7-24); CHLORIDE 109 mmol/L (98-107); CREATININE 0.56 mg/dL (0.55-1.02); SGOT/AST 18 IU/L (3-35); SGPT/ALT 20 U/L (12-78); SODIUM 139 mmol/L (136-145)
[2021-04-24 07:54] LABS: ALKALINE PHOSPHATASE 97 U/L (45-117)
[2021-04-24 08:00] VITALS: BP 162/80
[2021-04-24 12:00] VITALS: BP 158/86
[2021-04-24 16:00] VITALS: BP 150/70
[2021-04-24 20:00] VITALS: BP 142/72
[2021-04-25] VITALS: BP 152/68
[2021-04-25 12:00] VITALS: BP 120/46
[2021-04-25 16:00] VITALS: BP 134/52
== END 2021-04-25 17:34 | DRG 480 ==
LOC: ED 07:03 → EDHOLD 08:21 → 4E 08:21
PROVIDERS: Emergency Medicine; Internal Medicine Critical Care Medicine; ADMIT Internal Medicine; ATTEND Internal Medicine
PROC: 0QH734Z Insertion of Internal Fixation Device into Left Upper Femur, Percutaneous Approach (ICD-10-PCS; principal; 2021-04-18)
PROC: 3E0T3BZ Introduction of Anesthetic Agent into Peripheral Nerves and Plexi, Percutaneous Approach (ICD-10-PCS; 2021-04-18)
PROC: 3E0T33Z Introduction of Anti-inflammatory into Peripheral Nerves and Plexi, Percutaneous Approach (ICD-10-PCS; 2021-04-18)
DX: S72.002A Fracture of unspecified part of neck of left femur, initial encounter for closed fracture (principal); J96.00 Acute respiratory failure, unspecified whether with hypoxia or hypercapnia; F33.1 Major depressive disorder, recurrent, moderate; N17.9 Acute kidney failure, unspecified; J44.0 Chronic obstructive pulmonary disease with (acute) lower respiratory infection; I50.32 Chronic diastolic (congestive) heart failure; F41.1 Generalized anxiety disorder; M47.816 Spondylosis without myelopathy or radiculopathy, lumbar region; E03.9 Hypothyroidism, unspecified; M1A.9XX0 Chronic gout, unspecified, without tophus (tophi); W19.XXXA Unspecified fall, initial encounter; E66.01 Morbid (severe) obesity due to excess calories; D50.9 Iron deficiency anemia, unspecified; I73.9 Peripheral vascular disease, unspecified; F51.04 Psychophysiologic insomnia; F51.01 Primary insomnia; Z51.5 Encounter for palliative care; I11.0 Hypertensive heart disease with heart failure; G30.1 Alzheimer's disease with late onset; F02.80 Dementia in other diseases classified elsewhere, unspecified severity, without behavioral disturbance, psychotic disturbance, mood disturbance, and anxiety; Y93.89 Activity, other specified; Y92.098 Other place in other non-institutional residence as the place of occurrence of the external cause; Y99.8 Other external cause status; Z88.2 Allergy status to sulfonamides; Z87.891 Personal history of nicotine dependence; Z90.710 Acquired absence of both cervix and uterus; Z74.01 Bed confinement status; Z68.30 Body mass index [BMI] 30.0-30.9, adult; Z20.822 Contact with and (suspected) exposure to COVID-19

== ENCOUNTER → 2021-05-07 | Outpatient (CLI) | payer OTHER ==
[~2021-05-07] MED LIST changes: +BUMETANIDE1 MG PO; +Ipratropium Brom3 ML INH; +LORAZEPAM2 MG PO; +SERTRALINE HYDR50 MG PO
== END | disposition home or self-care (01) ==
LOC: ORTHO 00:34
PROVIDERS: ATTEND Orthopaedic Surgery
DX: S72.002A Fracture of unspecified part of neck of left femur, initial encounter for closed fracture (principal); X58.XXXA Exposure to other specified factors, initial encounter; Y93.89 Activity, other specified; Y92.89 Other specified places as the place of occurrence of the external cause; Y99.8 Other external cause status

== ENCOUNTER 2021-05-30 20:42 | Emergency (ER) | payer OTHER ==
[~2021-05-30] VITALS: Ht 170.1 cm; Wt 77.1 kg
== END 2021-05-31 01:16 | disposition home or self-care (01) ==
LOC: ED 20:42
DX: S76.011A Strain of muscle, fascia and tendon of right hip, initial encounter (principal); Z88.2 Allergy status to sulfonamides; Z79.899 Other long term (current) drug therapy; Z87.891 Personal history of nicotine dependence; W18.39XA Other fall on same level, initial encounter; Y93.89 Activity, other specified; Y92.89 Other specified places as the place of occurrence of the external cause; Y99.8 Other external cause status